=== PATIENT | male | born 1960 | race Caucasian/White ===

== ENCOUNTER → 2018-11-12 | Outpatient (CLI) | payer BC, SELFPAY ==
--- NOTE | 2018-11-12 09:37 | RAD_ITS ---
STUDY: X-RAY - LEFT HUMERUS REASON FOR EXAM: Male, 58 years old. Follow-up fracture. TECHNIQUE: 2 view(s) of the humerus. COMPARISON: None. FINDINGS: Although this exam is follow-up, no prior exams provided for comparison. Comminuted nondisplaced fractures are seen of the greater tuberosity and through the surgical neck of the humerus. Fracture lines are clearly evident. No specific evidence for healing. No dislocation. There is no demonstrated soft tissue abnormality. RAD/Humerus min 2 Views IMPRESSION: Fracture lines seen through the humeral head and greater tuberosity with no displacements or definite healing. Electronically Signed: Tereso Church MD at 17:19 EDT , Service support ,
== END | disposition home or self-care (01) ==
LOC: HPRAD 09:36
PROVIDERS: Family Provider Internal Medicine; PCP Internal Medicine; Referring Provider Orthopaedic Surgery; Visit Provider Orthopaedic Surgery
DX: S42.309A Unspecified fracture of shaft of humerus, unspecified arm, initial encounter for closed fracture (principal)
CPT/HCPCS: 73060

== ENCOUNTER → 2018-11-19 | Outpatient (CLI) | payer BC, SELFPAY ==
[2018-11-12 10:07] VITALS: BMI 30.2
[2018-11-19 10:24] LABS: Vitamin D,25 Hydroxy 18.2 ng/mL (29.95-100.01)
[2018-11-19 10:41] LABS: Anion Gap 4 (5-15); BUN 21 mg/dL (7-18); BUN/Creat Ratio 17.6 RATIO (10-20); Calcium,Total 9.1 mg/dL (8.5-10.1); Chloride 107 mmol/L (98-107); Cholesterol 191 mg/dL (200); Creatinine, Serum 1.19 mg/dL (0.70-1.30); EST Glomerular Filtration Rate 66 mL/min (>60); Est Glom Filt Rate - Afr Amer 80 mL/min (>60); Glucose 90 mg/dL (74-106); High Density Lipoprotein 53 mg/dL; Potassium 4.5 mmol/L (3.5-5.1); Sodium Level 139 mmol/L (136-145); Thyroid Stim Hormone (TSH) 0.91 uIU/mL (0.358-3.74); Triglycerides 127 mg/dL; Very Low Density Lipoprotein 25 mg/dL (5-40)
[2018-11-19 15:34] LABS: PSA,Total- Diagnostic 4.28 ng/mL (0.0-4.0)
== END | disposition home or self-care (01) ==
LOC: MFPLAB 08:40
PROVIDERS: Family Provider Family Medicine; PCP Family Medicine; Referring Provider Family Medicine; Visit Provider Family Medicine
DX: Z00.00 Encounter for general adult medical examination without abnormal findings (principal); R97.20 Elevated prostate specific antigen [PSA]
CPT/HCPCS: 36415; 80048; 80061; 82306; 84153; 84403; 84443; G0103

== ENCOUNTER → 2018-12-03 | Outpatient (CLI) | payer BC, SELFPAY ==
[2018-12-03 08:01] VITALS: BMI 30.2
--- NOTE | 2018-12-03 08:42 | RAD_ITS ---
STUDY: X-RAY - LEFT SHOULDER REASON FOR EXAM: Male, 58 years old. 3 view TECHNIQUE: 3 view(s) of the shoulder. COMPARISON: Previous left humerus x-rays obtained on 11/12/2018 FINDINGS: Normal glenohumeral articulation. Normal acromioclavicular joint. Normal acromion. There is a healing nondisplaced fracture involving the greater tuberosity. Callus deposition is noted surrounding the inferior fracture margin. The soft tissue structures are unremarkable. Normal visualized pulmonary apex. RAD/Shoulder min 2 Views IMPRESSION: A healing nondisplaced fracture is noted involving the greater tuberosity. Electronically Signed: Adan Carranza, at 9:41 EDT Tel , Service support ,
== END | disposition home or self-care (01) ==
LOC: HPRAD 08:42
PROVIDERS: Family Provider Family Medicine; PCP Family Medicine; Referring Provider Orthopaedic Surgery; Visit Provider Orthopaedic Surgery
DX: S42.293A Other displaced fracture of upper end of unspecified humerus, initial encounter for closed fracture (principal)
CPT/HCPCS: 73030

== ENCOUNTER → 2018-12-31 | Outpatient (CLI) | payer BC, SELFPAY ==
[2018-12-03 08:01] VITALS: BMI 30.2
--- NOTE | 2018-12-31 10:48 | RAD_ITS ---
STUDY: X-RAY - LEFT SHOULDER REASON FOR EXAM: Male, 58 years old. Injury. Pain. TECHNIQUE: 4 view(s) of the shoulder. COMPARISON: December 03, 2018 FINDINGS: There is mild degenerative arthrosis of the glenohumeral articulation. There is degenerative arthrosis of the acromioclavicular joint without inferior osseous spur formation. Normal acromion. There is stable humeral head fracture at the greater tuberosity. There is partial healing. The soft tissue structures are unremarkable. Normal visualized pulmonary apex. RAD/Shoulder min 2 Views IMPRESSION: Healing proximal humerus fracture. Electronically Signed: Jonas Julio MD at 22:32 EST , Service support ,
== END | disposition home or self-care (01) ==
LOC: HPRAD 10:47
PROVIDERS: Family Provider Family Medicine; PCP Family Medicine; Referring Provider Orthopaedic Surgery; Visit Provider Orthopaedic Surgery
DX: S42.293A Other displaced fracture of upper end of unspecified humerus, initial encounter for closed fracture (principal)
CPT/HCPCS: 73030

== ENCOUNTER 2019-01-08 10:30 | Outpatient (RCR) | payer BC, SELFPAY ==
[2018-11-12 10:07] VITALS: BMI 30.2
--- NOTE | 2018-11-21 12:58 | HP.PTEVAL_ITS ---
Patient's Visit Information TIMOTHY RAMOS is a 58 year old M referred to Physical Therapy by Angel Perez DO with a diagnosis of L Humerus Fracture. Date of Evaluation: 11/21/18 Physical Therapist: Val Mattson DPT - Visit Plan Frequency: 2x /Week Duration: 4 Weeks Plan: Start PROM 11/19/18, gently progress to AAROM. Start AROM at 12/06/18 per MD. - Subjective Findings: Tripped & landed on cement floor. Fractured in 2 places, x-rays in chart - 11/12/18. DUll pain in L shoulder. Lizandro N/T. Worst: 8-11/04 Aggravtes: moving, getting bumped. Pain Free Relieving Factors: pain meds, ice. Disrupts sleep at times. Sleeps in bed w/ wedge. Wears sling most of the time, not typically around the house or during sleep, but is extra careful at these times. L handed dominant. 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 No other injuries in the fall. Prior to injury yard & freq. yard work. No curent exercise program or other recreational work. Lizandro radiating pain up into neck or down the arm. Follow-up w/ 12/03/18. PMH/Meds: no sig. concerns. - Objective Posture: RS, FH, sling on L shoudler. ROM: Cervis WFL, Elbow WFL, L Shoulder Abd. 130 degrees, Flex. 110 degrees, Ext. Rot. 60 degrees. Strength: Not tested d/t fracture - Goals Goal 1:: Pt. will be I w/ HEP & progression Goal Time Frame: 4-6 Weeks Goal 2:: Pt. will demo 160 degrees of shoulder flexion Goal Time Frame: 4-6 Weeks Goal 3:: Pt. will report 0/10 pain w/ ADL's for 1 week. Goal Time Frame: 4-6 Weeks - Rehabilitation Potential Physical Therapy Diagnosis: Presents w/ L humerus fracture, decrease ROM/ Strength, and pain which leads to impaired performance of ADLs. Rehabilitation Potential: Good - Anticipated Interventions Patient/Client Instruction: Educate patient on: Condition For the Purpose of:: To decrease pain Therapeutic Exercise to Include: Strength training, Endurance training, Body mechanics, Postural training, Passive ROM, Active ROM, Scapular Strength/Stabilization For the Purpose of:: To improve muscle performance and motor function Manual Therapy Techniques to Include: Passive ROM For the Purpose of:: To improve muscle performance and motor function Cryotherapy (ice pack, ice massage): Yes Thermo therapy (hot pack): Yes Ultrasound (thermal/non thermal): Yes For the Purpose of:: To decrease pain Thank you for the opportunity to evaluate your patient. For Medicare and Medicare HMO plans, please review the plan of care and approve it. It will need to be FAXED BACK to us at [phone] for Medicare purposes. For Medicare only, by signing this I certify the plan of care. Please let me know if there are questions or concerns regarding this plan of care. Physician Signature: Date:
--- NOTE | 2018-12-19 08:45 | HP.PTREVAL_ITS ---
Angel Perez, DO, It has been my pleasure to treat TIMOTHY RAMOS over the last 9 visits for L Humerus Fracture. Please see the progress note below for an update on the physical therapy plan of care! Subjective: Patient reports the shoulder is doing good. It doesn't really hurt unless he pushes off of it. Sleeping on it is still a problem. The mobility is good- feels he is getting his strength back as well. Feels that he is 70% back to normal- is not back to digging and more physical work. Back to driving and no sling. Is back to work. Has a 2# lifting restriction. Feels that he is ready to be d/c and return to his normal activities. Goes back to Nov . Objective/Function: posture: good throughout. Gait: no deviation noted- good arm swing and trunk rotation. palpation: not tender. rom: wfl in all planes of the shoulder. Strength: scap: fair, Shoulder: 4/5 throughout, Elbow: +/5 Plan Plan: Hold 4 weeks perform HEP- follow up then Goals Goal 1:: Pt. will be I w/ HEP & progression Goal Time Frame: 4-6 Weeks Goal Progress: Goal Met Goal 2:: Pt. will demo 160 degrees of shoulder flexion Goal Time Frame: 4-6 Weeks Goal Progress: Goal Met Goal 3:: Pt. will report 0/10 pain w/ ADL's for 1 week. Goal Time Frame: 4-6 Weeks Goal Progress: Goal Met Anticipated Interventions Patient/Client Instruction: Educate patient on: Condition For the Purpose of:: To decrease pain Therapeutic Exercise to Include: Strength training, Endurance training, Body mechanics, Postural training, Passive ROM, Active ROM, Scapular Strength/Stabili zation For the Purpose of:: To improve muscle performance and motor function Manual Therapy Techniques to Include: Passive ROM For the Purpose of:: To improve muscle performance and motor function Cryotherapy (ice pack, ice massage): Yes Thermo therapy (hot pack): Yes Ultrasound (thermal/non thermal): Yes For the Purpose of:: To decrease pain Please do not hesitate to contact me at [phone] by phone or if you have questions or concerns regarding this new plan of care! Sincerely, Val Mattson DPT
--- NOTE | 2019-02-10 11:51 | HP.PTDCSUM ---
HP - PT D/C Summary It has been my pleasure to treat TIMOTHY RAMOS under orders from Angel Perez DO, for the diagnosis of L Humerus Fracture for a total of 10 visit(s). Discharge Date: Please see the following information for a summary of their discharge status. - Subjective Subjective: Here for a home exercise program for strength - Pain Left Shoulder Pain Intensity (Out of 10): 0 - Overall Improvement % Improvement: 70 - Objective Objective/Function: Patient returns to PT today due to MD wanting him to have a more extensive strength program. Edcuated and walked pt through exercises listed in TA- will follow up in 4 weeks for progression or d/c - Goals Goal 1:: Pt. will be I w/ HEP & progression Goal Progress: Goal Met Goal 2:: Pt. will demo 160 degrees of shoulder flexion Goal Progress: Goal Met Goal 3:: Pt. will report 0/10 pain w/ ADL's for 1 week. Goal Progress: Goal Met - Plan Plan: Hold 4 weeks perform HEP- follow up then - D/C Information If there are questions or concerns regarding this patient's physical therapy, please feel free to call me at [phone]. Thank you for the referral of this patient. Sincerely, JUNIOR PenningtonT
== END 2019-01-08 19:00 | disposition home or self-care (01) ==
LOC: PT 10:30
PROVIDERS: Family Provider Family Medicine; PCP Family Medicine; Referring Provider Orthopaedic Surgery; Visit Provider Orthopaedic Surgery
DX: S42.252D Displaced fracture of greater tuberosity of left humerus, subsequent encounter for fracture with routine healing (principal); S42.212D Unspecified displaced fracture of surgical neck of left humerus, subsequent encounter for fracture with routine healing
CPT/HCPCS: 97110; 97140; 97161; 97164; 97530

== ENCOUNTER → 2019-05-01 13:42 | Outpatient (CLI) | payer BC, SELFPAY ==
[2018-12-31 11:31] VITALS: BMI 30.2
[2019-05-01 15:43] LABS: PSA,Total - Annual Screen 4.25 ng/mL (0.00-4.00)
== END ==
PROVIDERS: PCP Family Medicine; Referring Provider Family Medicine; Visit Provider Urology
DX: R97.20 Elevated prostate specific antigen [PSA] (principal)
CPT/HCPCS: 36415; 84153; G0103

== ENCOUNTER → 2019-05-22 13:10 | Outpatient (CLI) | payer BC, SELFPAY ==
[2018-12-31 11:31] VITALS: BMI 30.2
[2019-05-22 13:35] LABS: CREATININE FINGERSTICK 1.1 mg/dL (0.70-1.30); EGFR FINGERSTICK > 60.0000 mL/min (>60)
--- NOTE | 2019-05-22 13:45 | MRI_ITS ---
STUDY: MR PELVIS WITH AND WITHOUT CONTRAST (PROSTATE) REASON FOR EXAM: Male, 58 years old. Elevated PSA with family history of prostate cancer TECHNIQUE: Standardized multiparametric prostate MRI with T1, T2, DWI/ADC sequences were obtained in 3 orthogonal planes, and dynamic contrast enhancement sequences. 21 ml of dotarem contrast material was administered intravenously for the contrast portion of the examination. COMPARISON: None. FINDINGS: The prostate volume measures 24 mm3. The contours of the prostate gland are smooth. There is not mass effect on the bladder base. The transition zone is homogenous. PI-RADS DWI score 1 - No abnormality (normal) on ADC or high b-value DWI. PI-RADS T2W score 1 - Normal appearing TZ or a round, completely encapsulated nodule (typical nodule).. Contrast enhancement no early or contemporaneous enhancement; or diffuse multifocal enhancement NOT corresponding to a focal finding on T2W and/or DWI or focal nhancement responding to a lesion demonstrating features of BPH onT2WI (including features of extruded BPH in the PZ). The peripheral zone is homogenous except for geographic/diffuse area of increased T2 signal intensity of the anterior mid apical peripheral zone (without diffusion or contrast enhancement abnormality) likely representing localized prostatitis. PI-RADS DWI score 1 - No abnormality (normal) on ADC or high b-value DWI. PI-RADS T2W score 1 - Uniformaly hyperintense (normal). Contrast enhancement (+) Focal, earlier or contemporaneous with enhancement of adjacent normal prostatic tissues, and corresponding to a suspicious finding on T2WI and/or DWI. The seminal vesicles demonstrate normal margins and T2 signal pattern. No mass lesion or invasion depicted. The rectoprostatic angles are normal. Urinary bladder is normal without wall thickening. The vascular structures of the are normal. The visualized hollow viscus structures are normal. No bone marrow edema or mass lesion depicted. MRI/Pelvis W/WO Contrast IMPRESSION: 1. PIRADS v2.1 2019 -- 1 - Very low (clinically significant cancer is high unlikely). 2. Localized anterior mid and apical peripheral zone T2 hyperintensity likely represents localized chronic prostatitis/inflammation Electronically Signed: Tayo Tran MD ([place]) at 15:58 EDT , Service support ,
== END ==
PROVIDERS: PCP Family Medicine; Referring Provider Urology; Visit Provider Urology
DX: R97.20 Elevated prostate specific antigen [PSA] (principal)
CPT/HCPCS: 72197; A9575

== ENCOUNTER → 2020-01-12 16:41 | Outpatient (CLI) | payer BC, SELFPAY ==
[2018-12-31 11:31] VITALS: BMI 30.2
== END ==
PROVIDERS: PCP Family Medicine; Referring Provider Family Medicine; Visit Provider Family Medicine
DX: Z71.89 Other specified counseling (principal)
CPT/HCPCS: 87635; U0003

== ENCOUNTER → 2020-07-18 13:37 | Outpatient (CLI) | payer BC, SELFPAY ==
[2018-12-31 11:31] VITALS: BMI 30.2
[2020-07-18 15:37] LABS: PSA,Total- Diagnostic 5.55 ng/mL (0.0-4.0)
== END ==
PROVIDERS: PCP Family Medicine; Referring Provider Urology; Visit Provider Urology
DX: R97.20 Elevated prostate specific antigen [PSA] (principal)
CPT/HCPCS: 36415; 84153

== ENCOUNTER → 2020-08-11 06:06 | Outpatient (CLI) | payer BC, SELFPAY ==
[2018-12-31 11:31] VITALS: BMI 30.2
--- NOTE | 2020-08-10 | LES_PTH ---
PATIENT: TIMOTHY RAMOS LOC: [facility] U#:[id number] AGE/SX: 64/M ROOM: RE08/11/[address]: Dr. Luke Guevara MD : 1960 BED: DIS: SPEC #: [id number] RECD: 08/10/20 17:48 STATUS: MAGGIE ANTHONY #: [id number] STEVEN: 08/10/20 00:[address]: Luke Guevara DEPT: SURGICAL PATHOLOGY RECD BY: Philippe Bonilla Tissues: Skin of chest Procedures: Surgery Specimen Level IV HEADER OPERATION: Skin biopsy PRE-OP DIAGNOSIS: Right chest skin lesion TISSUE SUBMITTED: Right chest skin lesion MICROSCOPIC DIAGNOSIS Skin lesion of right chest, biopsy: Seborrheic keratosis, hyperkeratotic type, inflamed. AM:ileana 08/12/2020 MICROSCOPIC DESCRIPTION Slides are reviewed. GROSS DESCRIPTION Received in fixative is one container labeled with the patient's name and designated right chest lesion. The specimen consists of a piece of michelle-brown skin measuring 0.7 x 0.5 x 0.4 cm. The specimen is inked, bisected and submitted entirely in one cassette. / SJ:rg 08/11/20 TC:5 CPT: 19219
[2020-08-11 11:15] LABS: Anion Gap 6 (5-15); BUN 21 mg/dL (7-18); BUN/Creat Ratio 18.3 RATIO (10-20); Calcium,Total 8.7 mg/dL (8.5-10.1); Chloride 107 mmol/L (98-107); Cholesterol 202 mg/dL (200); Creatinine, Serum 1.15 mg/dL (0.70-1.30); EST Glomerular Filtration Rate 69 mL/min (>60); Est Glom Filt Rate - Afr Amer 83 mL/min (>60); Glucose 88 mg/dL (74-106); High Density Lipoprotein 70 mg/dL; Potassium 4.5 mmol/L (3.5-5.1); Sodium Level 140 mmol/L (136-145); Triglycerides 105 mg/dL; Very Low Density Lipoprotein 21 mg/dL (5-40)
[2020-08-11 11:35] LABS: Vitamin D,25 Hydroxy 21.6 ng/mL
== END ==
PROVIDERS: Visit Provider Family Medicine
DX: Z00.00 Encounter for general adult medical examination without abnormal findings (principal); L98.9 Disorder of the skin and subcutaneous tissue, unspecified
CPT/HCPCS: 36415; 80048; 80061; 82306; 88305

== ENCOUNTER → 2021-10-25 | Outpatient (CLI) | payer BC, SELFPAY ==
[2021-10-25 10:38] LABS: Vitamin D,25 Hydroxy 19.3 ng/mL
[2021-10-25 10:47] LABS: Anion Gap 5 (5-15); BUN 19 mg/dL (7-18); BUN/Creat Ratio 14.4 RATIO (10-20); Calcium,Total 9.2 mg/dL (8.5-10.1); Chloride 109 mmol/L (98-107); Cholesterol 192 mg/dL (200); Creatinine, Serum 1.32 mg/dL (0.70-1.30); EST Glomerular Filtration Rate 58 mL/min (>60); Est Glom Filt Rate - Afr Amer 70 mL/min (>60); Glucose 106 mg/dL (74-106); High Density Lipoprotein 57 mg/dL; PSA,Total - Annual Screen 8.73 ng/mL (0.00-4.00); Potassium 4.2 mmol/L (3.5-5.1); Sodium Level 140 mmol/L (136-145); Triglycerides 95 mg/dL; Very Low Density Lipoprotein 19 mg/dL (5-40)
== END | disposition home or self-care (01) ==
LOC: MFPLAB 09:09
PROVIDERS: Visit Provider Family Medicine
DX: Z00.00 Encounter for general adult medical examination without abnormal findings (principal); E55.9 Vitamin D deficiency, unspecified; R53.83 Other fatigue; R97.20 Elevated prostate specific antigen [PSA]; Z13.220 Encounter for screening for lipoid disorders
CPT/HCPCS: 36415; 80048; 80061; 82306; 84153; 84403; 84443; G0103

== ENCOUNTER → 2021-12-05 | Outpatient (CLI) | payer BC, SELFPAY ==
--- NOTE | 2021-12-05 08:00 | PROSBIL_PTH ---
PATIENT: TIMOTHY RAMOS LOC: [facility] U#:[id number] AGE/SX: 61/M ROOM: RE12/05/[address]: Dr. Darius Villatoro MD : 1960 BED: DIS: 12/05/2021 SPEC #: [id number] RECD: 12/05/21 18:22 STATUS: MAGGIE ANTHONY #: [id number] STEVEN: 12/05/21 08:[address]: Darius Villatoro DEPT: SURGICAL PATHOLOGY RECD BY: Po Beard Tissues: A - PROSTATE RIGHT B - PROSTATE RIGHT C - PROSTATE RIGHT D - PROSTATE LEFT E - PROSTATE LEFT F - PROSTATE LEFT Procedures: PROSTATE BX HEADER OPERATION: Prostate biopsy PRE-OP DIAGNOSIS: Elevated PSA R97.20 TISSUE SUBMITTED: A - Right apex, B - Right mid, C - Right base, D - Left apex, E - Left mid, F - Left base MICROSCOPIC DIAGNOSIS A. Right prostate, apex, core biopsy: Prostatic tissue, negative for malignancy. B. Right prostate, mid, core biopsy: Prostatic tissue, negative for malignancy. C. Right prostate, base, core biopsy: Prostatic tissue, negative for malignancy. Focal mild chronic inflammation. D. Left prostate, apex, core biopsy: Prostatic tissue, negative for malignancy. E. Left prostate, mid, core biopsy: Prostatic tissue, negative for malignancy. F. Left prostate, base, core biopsy: Prostatic tissue, negative for malignancy. SJ:ileana 12/07/2021 MICROSCOPIC DESCRIPTION Slides are reviewed. GROSS DESCRIPTION A - Received is one container designated prostate, right apex. The specimen consists of two elongated fragments of light michelle-white soft tissue measuring 1 and 1.5 cm in length and 0.1 cm in diameter. The specimen is totally submitted in one cassette. B - Received is one container designated prostate, right mid. The specimen consists of two elongated fragments of light michelle-white soft tissue each measuring 1.5 cm in length and 0.1 cm in diameter. The specimen is totally submitted in one cassette. C - Received is one container designated prostate, right base. The specimen consists of two elongated fragments of light michelle-white soft tissue each measuring 1 cm in length and 0.1 cm in diameter. The specimen is totally submitted in one cassette. D - Received is one container designated prostate, left apex. The specimen consists of two elongated fragments of light michelle-white soft tissue measuring 0.6 and 1.5 cm in length and 0.1 cm in diameter. The specimen is totally submitted in one cassette. E - Received is one container designated prostate, left mid. The specimen consists of two elongated fragments of light michelle-white soft tissue measuring 1 and 1.5 cm in length and 0.1 cm in diameter. The specimen is totally submitted in one cassette. F - Received is one container designated prostate, left base. The specimen consists of two elongated fragments of light michelle-white soft tissue each measuring 1.5 cm in length and 0.1 cm in diameter. The specimen is totally submitted in one cassette. / SJ:rg 12/06/2021 TC:3 CPT: 54438 x6
== END | disposition home or self-care (01) ==
LOC: LABSPEC 16:33
PROVIDERS: Visit Provider Urology
DX: R97.20 Elevated prostate specific antigen [PSA] (principal)
CPT/HCPCS: 88305; G0416

== ENCOUNTER → 2022-06-11 | Outpatient (CLI) | payer BC, SELFPAY ==
[2022-06-11 16:11] LABS: PSA,Total- Diagnostic 8.97 ng/mL (0.0-4.0)
== END | disposition home or self-care (01) ==
LOC: MFPLAB 14:10
PROVIDERS: Visit Provider Family Medicine
DX: R97.20 Elevated prostate specific antigen [PSA] (principal)
CPT/HCPCS: 36415; 84153

== ENCOUNTER → 2022-09-13 | Outpatient (CLI) | payer BC, SELFPAY ==
[2022-09-13 12:39] LABS: Absolute Lymphocyte Count 0.59 X10^3/uL (0.83-4.51); Basophil# 0.02 X10^3/uL; Basophil% 0.3 % (0-1); Eosinophil# 0.05 X10^3/uL; Eosinophils% 0.7 % (0-5); Hematocrit 50.6 % (40-54); Hemoglobin 16.7 g/dL (13.0-16.5); Lymphocyte # 0.59 X10^3/ul (0.83-4.51); Lymphocyte % 8.8 % (19-41); Mean Corpuscular Hgb 29.5 pg (27.0-32.0); Mean Corpuscular Volume 89.4 fL (80-94); Mean Platelet Vol. 9.8 fl (6.2-12.0); Monocyte# 0.94 X10^3/uL; Monocyte% 14.1 % (0-10); NRBC Flagged by Analyzer 0 % (0-5); Neutrophil # 5.04 X10^3/uL (2.7-7.7); Neutrophil % 75.7 % (47-70); POSITIVE DIFFERENTIAL YES; Platelet Count 143 K/mm3 (150-450); RBC Distribution Width CV 12.2 % (11.6-14.6); Red Blood Count 5.66 M/mm3 (4.6-6.2); White Blood Count 6.7 K/mm3 (4.4-11.0)
[2022-09-13 12:41] LABS: Differential Indicated SCAN CRITERIA MET
[2022-09-13 13:36] LABS: Anion Gap 6 (5-15); BUN 19 mg/dL (7-18); BUN/Creat Ratio 13.4 RATIO (10-20); Calcium,Total 9.1 mg/dL (8.5-10.1); Chloride 104 mmol/L (98-107); Creatinine, Serum 1.42 mg/dL (0.70-1.30); EST Glomerular Filtration Rate 53 mL/min (>60); Est Glom Filt Rate - Afr Amer 65 mL/min (>60); Glucose 148 mg/dL (74-106); Sodium Level 135 mmol/L (136-145)
[2022-09-14 11:09] LABS: Lyme Scn Total Ab w/Rflx Negative (Negative)
== END | disposition home or self-care (01) ==
LOC: MFPLAB 10:07
PROVIDERS: PCP Family Medicine; Visit Provider Family Medicine
DX: R21 Rash and other nonspecific skin eruption (principal); R53.83 Other fatigue
CPT/HCPCS: 36415; 80048; 85025; 86618

== ENCOUNTER → 2022-12-26 | Outpatient (CLI) | payer BC, SELFPAY ==
[2022-12-26 10:41] LABS: Absolute Lymphocyte Count 2.03 X10^3/uL (0.83-4.51); Absolute Neutrophil Count 4.1 X10^3/uL (2.0-7.7); Basophil# 0.02 X10^3/uL; Basophil% 0.3 % (0-1); Eosinophil# 0.24 X10^3/uL; Eosinophils% 3.4 % (0-5); Hematocrit 47.7 % (40-54); Hemoglobin 15.9 g/dL (13.0-16.5); Lymphocyte # 2.03 X10^3/ul (0.83-4.51); Lymphocyte % 28.8 % (19-41); Mean Corp Hgb Conc 33.3 g/dL (32-36); Mean Platelet Vol. 9.2 fl (6.2-12.0); Monocyte# 0.63 X10^3/uL; Monocyte% 8.9 % (0-10); NRBC Flagged by Analyzer 0 % (0-5); Neutrophil # 4.12 X10^3/uL (2.7-7.7); Neutrophil % 58.3 % (47-70); Platelet Count 225 K/mm3 (150-450); RBC Distribution Width CV 12.8 % (11.6-14.6); RBC Distribution Width SD 40.8 fl (35.1-43.9); Red Blood Count 5.48 M/mm3 (4.6-6.2); White Blood Count 7.1 K/mm3 (4.4-11.0)
[2022-12-26 11:18] LABS: PSA,Total- Diagnostic 8.47 ng/mL (0.0-4.0)
[2022-12-28 15:59] LABS: ALB/GLOB Ratio 1.3 RATIO (0.9-2.4); AST(SGOT) 18 U/L (15-37); Alanine Aminotransfer ALT/SGPT 36 U/L (16-61); Albumin, Serum 3.9 g/dL (3.2-5.0); Alkaline Phosphatase 76 U/L (45-117); Anion Gap 5 (5-15); BUN 17 mg/dL (7-18); BUN/Creat Ratio 14.2 RATIO (10-20); Calcium,Total 8.8 mg/dL (8.5-10.1); Chloride 109 mmol/L (98-107); Cholesterol 211 mg/dL (200); EST Glomerular Filtration Rate 65 mL/min (>60); Est Glom Filt Rate - Afr Amer 78 mL/min (>60); Globulin 3.1 g/dL (2.2-4.2); Glucose 99 mg/dL (74-106); High Density Lipoprotein 69 mg/dL; Sodium Level 140 mmol/L (136-145); Triglycerides 85 mg/dL; Very Low Density Lipoprotein 17 mg/dL (5-40)
== END | disposition home or self-care (01) ==
LOC: MFPLAB 09:04
PROVIDERS: PCP Family Medicine; Referring Provider Urology; Visit Provider Urology
DX: Z00.00 Encounter for general adult medical examination without abnormal findings (principal); R97.20 Elevated prostate specific antigen [PSA]
CPT/HCPCS: 36415; 80053; 80061; 84153; 85025

== ENCOUNTER → 2023-04-08 | Outpatient (CLI) | payer BC, SELFPAY ==
[2023-04-08 18:34] LABS: ALB/GLOB Ratio 1.3 RATIO (0.9-2.4); AST(SGOT) 11 U/L (15-37); Alanine Aminotransfer ALT/SGPT 31 U/L (16-61); Albumin, Serum 3.9 g/dL (3.2-5.0); Alkaline Phosphatase 93 U/L (45-117); Anion Gap 6 (5-15); BUN 24 mg/dL (7-18); Calcium,Total 8.9 mg/dL (8.5-10.1); Chloride 114 mmol/L (98-107); Creatinine, Serum 1.09 mg/dL (0.70-1.30); EST Glomerular Filtration Rate 72 mL/min (>60); Est Glom Filt Rate - Afr Amer 87 mL/min (>60); Glucose 113 mg/dL (74-106); Potassium 3.7 mmol/L (3.5-5.1); Protein, Total 6.9 g/dL (6.4-8.2); Sodium Level 144 mmol/L (136-145); Uric Acid 7.3 mg/dL (3.5-7.2)
--- OUTSIDE RECORDS SUMMARY | 2023-04-08 18:38 | XMS RPT_ITS | CCD ---
Author Name Unknown Address [address] [place] [address] Organization [facility] Results Test Name Value Interpretation Reference Range Facil ity Progress note 05-12-2021 Note Date & Type Note Facility 05-12-2021 Note HNO ID: [id number] Author: Alec Lloyd APRN.DISCIPLINARY HEARING OFFICER Service: ? Author Type: Nurse Practitioner Type: Progress Notes Filed: 05/12/2021 11:07 AM Note Text: Subjective HPI HPI Tin Vargas is a 60 year old male who presents today for CC of bump on left arm. This started 1 day ago. Has tried nothing for relief. Symptoms are worsened by nothing. Risk factors last week did repetitive job. Denies known injury, fever, joint pain. .Patient presents with: Pain (Elbow Pain): L arm possible bursitis x1 day PAST MEDICAL HISTORY Diagnosis Date - Benign neoplasm of colon colon polyp - Chronic rhinitis had prior allergy testing but no source found; conotrlled with Actifed - Diverticulosis of colon (without mention of hemorrhage) - Snoring PAST SURGICAL HISTORY Procedure Laterality Date - COLONOSCOPY FLX DX W/COLLJ SPEC WHEN PFRMD 02/07/2000 Colonoscopy - COLONOSCOPY FLX DX W/COLLJ SPEC WHEN PFRMD 05/09/2006 Colonoscopy - COLONOSCOPY FLX DX W/COLLJ SPEC WHEN PFRMD 04/14/2012 Colonoscopy - COLONOSCOPY FLX DX W/COLLJ SPEC WHEN PFRMD 05/27/2017 Colonoscopy - PAST SURGICAL HISTORY OF 2004 Cyst removed from neck - TONSILLECTOMY PRIMARY/SECONDARY ALLERGIES Patient has no known allergies. MEDICATIONS acetaminophen (TYLENOL) 325 mg tablet Take 650 mg by mouth every 6 hours as needed. IBUPROFEN ORAL Take by mouth as needed. pseudoephedrine-triprolidine (ACTIFED) 2.5-60 mg tab Takes 2 daily to control congestion and allergy symptoms methylPREDNISolone (MEDROL, NARAYAN,) 4 mg Dose-Pack Follow dosing instructions, take with food. meloxicam (MOBIC) 15 mg tablet Take 1 tablet by mouth once daily. for pain. Take with food. FAMILY HISTORY Problem Relation Age of Onset - Prostate Cancer Father - Diabetes Maternal Grandfather - other (ASCVD [Other]) Maternal Grandfather from [place] in late 70's - other (Cardiac [Other]) Father might need pacer - other (cardiac [Other]) Mother might need pacer - other (Skin cancer [Other]) Sister ?melanoma - Prostate Cancer Other Great Uncle PGF side - Prostate Cancer Other Great Uncle's son - Cancer Paternal Grandfather ?NHL (nonHodgkins Lymphome) Social History Tobacco Use - Smoking status: Former Smoker Years: 6.00 Types: Cigarettes Quit date: 03/04/2005 Years since quittin.2 - Smokeless tobacco: Never Used - Tobacco comment: Quit 1993 2-3 cig. daily Substance Use Topics - Alcohol use: Yes Comment: 3-4 beer or wine daily - Drug use: No Comment: h/o marjiuana (in college) x 4-5 years Quit ROS Objective Blood pressure 128/92, pulse 77, temperature 36.4 ?C (97.5 ?F), resp. rate 18, weight 108.9 kg (240 lb), SpO2 99 %. Physical Exam Constitutional: General: He is not in acute distress. Appearance: He is not toxic-appearing or diaphoretic. HENT: Head: Normocephalic and atraumatic. Cardiovascular: Pulses: Radial pulses are 2+ on the left side. Pulmonary: Effort: Pulmonary effort is normal. No accessory muscle usage or respiratory distress. Musculoskeletal: Left elbow: Swelling present. No deformity, effusion or lacerations. Normal range of motion. No tenderness. Arms: Neurological: Mental Status: He is alert and oriented to person, place, and time. ASSESSMENT/PLAN: 1. Olecranon bursitis of left elbow - ICD9: 726.33, ICD10: M70.22 Steroids ordered, compression and icing advised F/u in 7-10 days if no improvement with pcp or ortho. - METHYLPREDNISOLONE 4 MG TABLETS IN A DOSE PACK Agrees to plan Declines avs Alec Lloyd APRN.DISCIPLINARY HEARING OFFICER [facility] Summary Purpose Family History No Family History Records Found Advance Directives No Advanced Directives Records Found Additional Source Comments (unrecognized sect ion and content) No Status Records Found INFORMATION SOURCE (unrecogn ized section and content) FOR RECORDS PERTAINING TO PATIENTS WHO ARE OR HAVE BEEN ENROLLED IN A CHEMICAL DEPENDENCY/SUBSTANCEABUSE PROGRAM, SOME INFORMATION MAY BE OMITTED. This clinical summary was aggregated from multiple sources. Caution should be exercised in using it in the provision of clinical care. This summary normalizes information from multiple sources, and as a consequence, information in this document may materially change the coding, format and clinical context of patient data. In addition, data may be omitted in some cases. CLINICAL DECISIONS SHOULD BE BASED ON THE PRIMARY CLINICAL RECORDS. [facility] [employer] provides no warranty or guarantee of the accuracy or completeness of information in this document.
== END | disposition home or self-care (01) ==
LOC: MFPLAB 14:09
PROVIDERS: PCP Family Medicine; Visit Provider Family Medicine
DX: F10.10 Alcohol abuse, uncomplicated (principal); M10.9 Gout, unspecified
CPT/HCPCS: 36415; 80053; 84550

== ENCOUNTER 2023-04-15 09:49 | Outpatient (RCR) | payer BC, SELFPAY | END 2023-04-15 19:00 | disposition home or self-care (01) | LOC: PT 09:49 | PROVIDERS: PCP Family Medicine; Referring Provider Student in an Organized Health Care Education/Training Program; Visit Provider Student in an Organized Health Care Education/Training Program | DX: M76.61 Achilles tendinitis, right leg (principal) ==

== ENCOUNTER → 2023-06-25 | Outpatient (CLI) | payer BC, SELFPAY ==
[2023-06-25 18:15] LABS: PSA,Total- Diagnostic 8.13 ng/mL (0.0-4.0)
== END | disposition home or self-care (01) ==
LOC: MFPLAB 15:47
PROVIDERS: PCP Family Medicine; Visit Provider Family Medicine
DX: R97.20 Elevated prostate specific antigen [PSA] (principal)
CPT/HCPCS: 36415; 84153

== ENCOUNTER 2023-09-11 00:05 | Emergency (ER) | payer BC, SELFPAY ==
[2023-09-11] VITALS (7 sets, daily range): BP systolic 152–175; BP diastolic 78–95; PULSE 63–92; RESP 18; TEMP 36.6–36.9; O2SAT 94–97; BMI 29.6
--- NOTE | 2023-09-11 00:26 | RAD_ITS ---
STUDY: X-RAY - RIGHT KNEE REASON FOR EXAM: Male, 63 years old patient wit right-sided knee pain. TECHNIQUE: 3 view(s) of the knee. COMPARISON: None. FINDINGS: Normal visualized distal femur. Normal visualized proximal tibia and fibula. There is arthrosis of the proximal tibiofibular articulation. There is no demonstrated fracture. Normal medial femorotibial compartment. Normal lateral femorotibial compartment. There is mild degenerative arthrosis of the patellofemoral articulation. There is a moderate volume joint effusion. There are atherosclerotic calcifications. RAD/Knee 3 Views IMPRESSION: Suprapatellar effusion and mild degenerative arthropathy. Electronically Signed: Stacey Zamudio MD at 2:06 EDT ,
[2023-09-11 00:53] LABS: Absolute Lymphocyte Count 1.32 X10^3/uL (0.83-4.51); Absolute Neutrophil Count 7.4 X10^3/uL (2.0-7.7); Basophil# 0.02 X10^3/uL; Basophil% 0.2 % (0-1); Eosinophil# 0.15 X10^3/uL; Eosinophils% 1.5 % (0-5); Hematocrit 44.6 % (40-54); Hemoglobin 14.9 g/dL (13.0-16.5); Lymphocyte # 1.32 X10^3/ul (0.83-4.51); Lymphocyte % 13.2 % (19-41); Mean Corp Hgb Conc 33.4 g/dL (32-36); Mean Corpuscular Hgb 29.3 pg (27.0-32.0); Mean Corpuscular Volume 87.6 fL (80-94); Mean Platelet Vol. 9.3 fl (6.2-12.0); Monocyte# 1.12 X10^3/uL; Monocyte% 11.2 % (0-10); NRBC Flagged by Analyzer 0 % (0-5); Neutrophil # 7.38 X10^3/uL (2.7-7.7); Neutrophil % 73.5 % (47-70); Platelet Count 199 K/mm3 (150-450); RBC Distribution Width CV 12.4 % (11.6-14.6); RBC Distribution Width SD 39.7 fl (35.1-43.9); Red Blood Count 5.09 M/mm3 (4.6-6.2)
[2023-09-11 01:03] LABS: Anion Gap 7 (5-15); BUN 16 mg/dL (7-18); BUN/Creat Ratio 13.8 RATIO (10-20); Calcium,Total 8.6 mg/dL (8.5-10.1); Chloride 107 mmol/L (98-107); Creatinine, Serum 1.16 mg/dL (0.70-1.30); EST Glomerular Filtration Rate 67 mL/min (>60); Est Glom Filt Rate - Afr Amer 81 mL/min (>60); Estimated Creatinine Clearance 81.93 ml/min; Glucose 108 mg/dL (74-106); Potassium 3.9 mmol/L (3.5-5.1); Sodium Level 140 mmol/L (136-145)
[2023-09-11 01:04] LABS: Erythrocyte Sedimentation Rate < 1 mm/hr (0-20)
[2023-09-11 01:13] LABS: Lactic Acid 1.6 mmol/L (0.4-1.9)
[2023-09-11 02:04] LABS: Pathologist Comment/Body Fluid May follow
--- NOTE | 2023-09-11 02:16 | EX.ED.DYSGE1 ---
HPI History of Present Illness Chief Complaint: Fever Informant: patient Narrative Narrative: Patient is a 63-year-old male with no significant past medical history. He states he noted some right knee pain that felt more like he tweaked the knee on Saturday. Since that time he has been having increasing pain and swelling. This evening he awoke with subjective fevers and chills and felt worsening pain of his right knee. With concern there may be an infectious process he presents for evaluation. He denies any recent travel surgery or history of DVT/PE. [facility] Medical History Elevated PSA Home Medications ?Medication ?Instructions ?Recorded ?Last Taken ?Type Actifed 02/05/14 Unknown History prednisone 20 mg tablet 40 mg (2 x 20 mg) PO DAILY 5 days 09/11/23 Unknown Rx #10 tabs Allergy/AdvReac Type Severity Reaction Status Date / Time No Known Allergies Allergy Verified 02/05/14 01:28 Surgical History (Updated 09/11/23 @ 00:15 by Jennie Christianson) H/O lymph node biopsy Social History (Updated 12/03/18 @ 11:[address] Angel Perez, DO) Smoking Status: Former smoker ROS ROS ED Constitutional Constitutional ED: Reports chills, fever(s) and subjective ENT ENT ED: Denies sore throat Cardiovascular Cardiovascular: Denies chest pain Respiratory/Chest Respiratory/Chest: Denies cough or dyspnea Gastrointestinal Gastrointestinal: Denies abdominal pain, diarrhea, nausea or vomiting Genitourinary Genitourinary ED: Denies dysuria Musculoskeletal Musculoskeletal: Reports other Details: Positive right knee pain and swelling Integumentary Denies rash Neurologic Neurologic: Denies headache(s), paresthesias or weakness Hematologic/Lymphatic Hematologic/Lymphatic: Denies easy bleeding or easy bruising EXAM Physical Exam Const Vital Signs: 09/11/23 00:06 09/11/23 00:11 09/11/23 00:13 Temperature 98.3 F 98.3 F Temperature Source Oral Oral Pulse Rate 63 86 Respiratory Rate 18 18 Respiratory Effort Normal Respiratory Pattern Normal Blood Pressure 173/95 H 173/95 H Blood Pressure Mean 121 121 Pulse Ox 97 97 Oxygen Delivery Method Room Air Room Air 09/11/23 01:11 09/11/23 02:11 09/11/23 03:00 Temperature 98 F 97.8 F 98 F Temperature Source Temporal Temporal Temporal Pulse Rate 88 92 86 Respiratory Rate 18 18 18 Respiratory Effort Respiratory Pattern Blood Pressure 175/88 H 163/95 H 159/90 H Blood Pressure Mean 117 117 113 Pulse Ox 96 95 96 Oxygen Delivery Method 09/11/23 04:00 09/11/23 04:22 Temperature 97.8 F 98.4 F Temperature Source Temporal Pulse Rate 91 88 Respiratory Rate 18 18 Respiratory Effort Respiratory Pattern Blood Pressure 159/86 H 152/78 H Blood Pressure Mean 110 102 Pulse Ox 95 94 Oxygen Delivery Method Positive well nourished and well developed General Appearance ED: well developed HEENT HEENT Narrative: Normocephalic atraumatic Eyes PERRL and EOMs intact bilaterally General Eye ED: Negative for pale conjunctiva or scleral icterus Neck supple Neck Narrative: No nuchal rigidity or meningeal signs Resp normal respiratory effort and clear to auscultation bilaterally Resp Narrative: No nasal flaring retractions tachypnea or accessory muscle use Cardio regular rate and regular rhythm Rate: other Other Details: Heart is regular rate and rhythm without murmurs rubs or gallops Radial and carotid pulses are equal and symmetric GI normal to inspection, nondistended, normoactive bowel sounds, non-tender, non-distended and no masses Auscultation: normoactive bowel sounds Palpation: soft Extremity Extremity Narrative: Right lower extremity is neurovascularly intact. Patient has asymmetric swelling to the anterior aspect of the right knee compared to left. There is a small joint effusion present. There is faint erythema and warmth of the right anterior knee compared to left. Active range of motion is present but decreased of the right knee compared to left. No crepitance palpated. Patellar tendon is intact and knee ligaments are stable Negative Homans' sign bilaterally Compartments are soft and compressible going against compartment syndrome Neuro oriented x3, CN's II-XII intact bilaterally and no sensory deficits noted Sensorium / Orientation: alert Psych mental status grossly normal Skin Skin Narrative: Mild soft tissue swelling with joint effusion and faint erythema to the anterior aspect of the right knee without obvious abscess formation active drainage or lymphangitic streaking Patient does have a healing wound along the posterior aspect of the right distal thigh without retained foreign body or signs of secondary infection MDM MDM MDM Narrative Medical decision making narrative: Patient arrived to the ER hypertensive but otherwise with stable vitals. He reported pain and swelling to his right knee that came on slowly on Saturday and has increased over multiple days. He denies any trauma or excessive activity prior to the pain beginning. He states this evening he had subjective fevers and chills and was concern for infection so presented for evaluation. On exam he is able to bear weight and flex the knee so concern for septic joint is present but lower on the differential. I do have concern that this is an inflammatory bursitis but there is also concern for potential infective bursitis versus inflammatory arthritis versus bony injury such as contusion or fracture. Therefore blood work was obtained as well as a x-ray. Labs are only positive for mildly elevated CRP with normal white count and no lactic acidosis or elevation to the CRP. X-ray showed an effusion without any obvious changes to suggest osteomyelitis or fracture. Based on the mildly elevated CRP slowly increasing pain and now joint effusion decision was made to aspirate the joint as documented below. The patient's Gram stain is negative for any type of organisms. I feel that a negative Gram stain coupled with the fact he does not have a fever in the ER as well as the fact there is no leukocytosis or lactic acidosis or elevation to his ESR but only mild elevation to his CRP would indicate that this is an inflammatory bursitis/arthritis and not infectious. Lab reports that he has monosodium urate crystals in the joint aspirate which is most consistent with gout. This correlates with his mild elevation of CRP but no signs of infectious process. Therefore he will be placed on a 5-day course of prednisone to reduce inflammation and gouty crystals but is otherwise safe for discharge. Patient had his right knee flexed to approximately 45 degrees. The knee was prepped with chlorhexidine in sterile fashion. The area was anesthetized using 6 mL of 2% lidocaine with epinephrine and local fashion. A 20-gauge needle was then used to infiltrate the right knee joint space. Approximately 30 mL of straw-colored synovial fluid was removed. Following this a bandage was placed over top the injection site and the knee was wrapped in Koko wrap. Patient tolerated procedure well without complication. History & Record Review Discussion w/independent historian: Patient Lab Data Attestation: I reviewed the patient's lab results. Labs: Laboratory Results - last 24 hr 09/11/23 09/11/23 00:36 01:59 WBC 10.0 RBC 5.09 Hgb 14.9 Hct 44.6 MCV 87.6 MCH 29.3 MCHC 33.4 RDW Std Deviation 39.7 RDW Coeff of Stepan 12.4 Plt Count 199 MPV 9.3 Immature Gran % (Auto) 0.400 Neut % (Auto) 73.5 H Lymph % (Auto) 13.2 L [place] % (Auto) 11.2 H Eos % (Auto) 1.5 Baso % (Auto) 0.2 Absolute Neuts (auto) 7.4 Absolute Lymphs (auto) 1.32 Nucleated RBC % 0 ESR < 1 Sodium 140 Potassium 3.9 Chloride 107 Carbon Dioxide 26.0 Anion Gap 7 BUN 16 Creatinine 1.16 Estim Creat Clear Calc 81.93 Est GFR (MDRD) Af Amer 81 Est GFR (MDRD) Non-Af 67 BUN/Creatinine Ratio 13.8 Glucose 108 H Lactic Acid 1.6 Calcium 8.6 C-React Prot Ext Range 16.00 H Fluid Source OTHER Fluid Color YELLOW Fluid Appearance CLOUDY Fluid Crystal Source SYNOVIAL Radiography Diagnostic Testing: Clinical Impression(s) from Imaging Studies Knee X-Ray 09/11/23 00:26 IMPRESSION: Suprapatellar effusion and mild degenerative arthropathy. Electronically Signed: Stacey Zamudio MD at 2:06 EDT Reading Location ID and State: [facility] / [place] , Service support , X-ray of the right knee as interpreted by the emergency medicine physician shows mild arthritic changes without acute fracture dislocation or retained foreign body. There is a moderate joint effusion noted Discharge Plan Triage Chief Complaint: Fever Other Complaint: Lower Extremity Injury ED Provider: Fran Mars Dx/Rx/DC Orders Clinical Impression: Effusion of right knee joint, Gouty arthritis of right knee, Hypertension Instructions: ED Gout, ED Knee Effusion Prescriptions: New prednisone 20 mg tablet 40 mg PO DAILY 5 Days Qty: 10 0RF No Action Actifed Primary Care Provider: Luke Guevara Referrals: Luke Guevara MD [Primary Care Provider] - Activity Restrictions/Additional Instructions: Please take the prednisone as directed to reduce inflammation and wear your Koko wrap for the next few days to prevent reaccumulation of the joint effusion. Follow-up with your family doctor for repeat evaluation and return to the ER should you have any further concerns Print Language: Swedish Disposition Disposition: Home, Self Care Discharge Date/Time: 09/11/23 04:26
[2023-09-11 02:40] LABS: Appearance/Body Fluid CLOUDY; Auto B Fluid Analyzer BKGD Ct COUNTS W/IN LIMITS (W/IN LIMITS); Color/Body Fluid YELLOW; Source- Body Fluid OTHER; Source- Body Fluid SYNOVIAL
[2023-09-11] MEDS: Lidocaine 2% /Epi 1:100 (20ml) 20 ML VIAL INFILT (04:24)
[2023-09-11 04:28] LABS: CRYSTALS, BODY FLUID MONOSODIUM URATE
[2023-09-11 04:33] LABS: Body Fluid QC Type(s) BF1Q,BF2Q
[2023-09-11 07:06] LABS: Lymphocytes 8 %; Neutrophil (Segs) 92 %
[2023-09-11 07:07] LABS: Body Fluid Total Cells Counted 29.235 10^3/ul; Red Cell Count/Body Fluid 0.003 10^6/ul; White Blood Count/Body Fluid 29.185 10^3/uL
[2023-09-11 11:53] LABS: Pathologist Review Reviewed
== END 2023-09-11 04:26 | disposition home or self-care (01) ==
PROVIDERS: Emergency Provider Emergency Medicine; PCP Family Medicine; Visit Provider Emergency Medicine
DX: M25.461 Effusion, right knee (principal); M10.061 Idiopathic gout, right knee; I10 Essential (primary) hypertension; Z87.891 Personal history of nicotine dependence
CPT/HCPCS: 73562; 80048; 83605; 85025; 85652; 86140; 87070; 87075; 87205; 89050; 89060; 99284; A4216

== ENCOUNTER → 2023-10-14 | Outpatient (CLI) | payer BC, SELFPAY ==
[2023-10-14 18:22] LABS: Uric Acid 6.8 mg/dL (3.5-7.2)
== END | disposition home or self-care (01) ==
LOC: MTLAB 13:58
PROVIDERS: PCP Family Medicine; Referring Provider Family Medicine; Visit Provider Family Medicine
DX: M25.569 Pain in unspecified knee (principal)
CPT/HCPCS: 36415; 84550

== ENCOUNTER → 2024-01-02 | Outpatient (CLI) | payer BC, SELFPAY ==
[2024-01-02 10:38] LABS: Anion Gap 4 (5-15); BUN 13 mg/dL (7-18); BUN/Creat Ratio 12.9 RATIO (10-20); Chloride 111 mmol/L (98-107); Cholesterol 171 mg/dL (200); Creatinine, Serum 1.01 mg/dL (0.70-1.30); EST Glomerular Filtration Rate 79 mL/min (>60); Est Glom Filt Rate - Afr Amer 95 mL/min (>60); Glucose 99 mg/dL (74-106); High Density Lipoprotein 82 mg/dL; Potassium 4.2 mmol/L (3.5-5.1); Sodium Level 140 mmol/L (136-145); Triglycerides 75 mg/dL; Uric Acid 6.1 mg/dL (3.5-7.2); Very Low Density Lipoprotein 15 mg/dL (5-40)
== END | disposition home or self-care (01) ==
LOC: MFPLAB 08:51
PROVIDERS: PCP Family Medicine; Visit Provider Family Medicine
DX: Z00.00 Encounter for general adult medical examination without abnormal findings (principal); M10.9 Gout, unspecified; R97.20 Elevated prostate specific antigen [PSA]
CPT/HCPCS: 36415; 80048; 80061; 84153; 84550

== ENCOUNTER → 2024-02-10 | Outpatient (CLI) | payer BC, SELFPAY ==
--- NOTE | 2024-02-10 11:18 | MRI_ITS ---
STUDY: MR PROSTATE GLAND/ PELVIS WITH T WITHOUT CONTRAST REASON FOR EXAM: Male, 63 years old. ELEVATED PSA,,,TOTAL PSA 14.20 01/02/24 TECHNIQUE: Standardized fat and water weighted pulse sequences were obtained in all 3 orthogonal planes, pre-and post contrast administration. IV 20ml clariscan was administered for the contrast portion of the examination. COMPARISON: CT of abdomen and pelvis dated March 03, 2006. MRI of the prostate gland/pelvis dated May 22, 2019 FINDINGS: Prostate gland volume/size: 5.59 x 4.11 x 4.67 cm. Anterior fibromuscular stroma: Normal. Peripheral zone: Scattered linear intermediate fibrotic foci throughout the right and left peripheral zone but no discrete mass or enhancing lesion or extracapsular lesion. Central zone: Mildly heterogeneous and nodular with hyperplastic tissue and some small cysts on both the left and right sides. Also demonstrating diffuse symmetric enhancement and diffusion-weighted signal without a discrete nodule indicating a neoplasm by MR criteria. Transitional zone: Mildly heterogeneous and nodular with hyperplastic tissue and some small cysts on both the left and right sides. Also demonstrating diffuse symmetric enhancement and diffusion-weighted signal without a discrete nodule indicating a neoplasm by MR criteria. If there is abnormal PSA elevation consider biochemical malignancy/recurrence. This can be further evaluated with prostate PET/CT examinations. Prostate capsule: Intact: Seminal vesicles: Normal fluid signal bilaterally. Pelvic sidewall lymphadenopathy: None demonstrated. Bony structures: No lytic or blastic or aggressive process. No demonstrated enhancing lesions. No bone marrow edema or infiltrative marrow replacement process is seen. No visualized pathologic fractures. Bladder: No demonstrated masses or filling defects/stones. Normal urinary bladder. Normal visualized small intestine. Significant rectosigmoid diverticulosis. Vessels: No significant or large aneurysm is demonstrated. Normal osseous structures. Normal abdominal wall. Moderate hamstring tendinosis/tendinitis with thickening and peritendinous inflammatory stranding is present MRI/Pelvis W/WO Contrast IMPRESSION: 1. Transitional and central zones: Mildly heterogeneous and nodular with hyperplastic tissue and some small cysts on both the left and right sides. Also demonstrating diffuse symmetric enhancement and diffusion-weighted signal without a discrete nodule indicating a neoplasm by MR criteria. If there is abnormal PSA elevation consider biochemical malignancy/recurrence. This can be further evaluated with prostate PET/CT examinations. 2. PI-RADS 2: low (clinically significant cancer is unlikely to be present) 3. Targeted image guided biopsy of nodules or area of interest can be performed for definitive pathologic assessment of the tissue and diagnosis 4. Prostate PET/CT exam can also be performed to determine if there is viable malignant neoplasm in the prostate gland. Prostate MRI reference: 15-30% of prostate cancers can go undetected on Prostate MRI. Monitoring and assessment by Primary physician, Urology, and oncology service recommended and treated clnically. (Cancers ([place]). 2022Feb 06;15(79):5857. doi: [id number] Prostate Cancers Invisible on Multiparametric MRI: Pathologic Features in Correlation with Whole-Mount Prostatectomy Radha Boateng 1,2,*, Shon Dotson 3, Alden Hinds 1,2, Alley Maxwell 1,2, Kalpana Stallworth 4, Kwabena Bowen 5, Rodrigo Overton 6, Willian Howard 1,2, Jacoby Kapoor 1,2) Reference information: Normal prostate tissue Benign prostatic hypertrophy cancer/tumor - low signal peripheral , transitional, and central zones malignancy appears as bright on DWI and low signal on ADC map Prostate imaging-reporting and data system (PI-RADS) PI-RADS 1: very low (clinically significant cancer is highly unlikely to be present) PI-RADS 2: low (clinically significant cancer is unlikely to be present) PI-RADS 3: intermediate (the presence of clinically significant cancer is equivocal) PI-RADS 4: high (clinically significant cancer is likely to be present) PI-RADS 5: very high (clinically significant cancer is highly likely to be present) PI-RADS X: component of exam technically inadequate or not performed Prostate malignancy distribution: Peripheral zone: 70-80% Transitional zone: 10-20% Central zone: 5% or less Electronically Signed: Tung Menendez MD at 16:05 EST ,
[2024-02-12 12:08] LABS: PSA, Free 0.66 ng/mL; PSA, Free % 8.1 % (.)
== END | disposition home or self-care (01) ==
LOC: MRI 10:57 → LAB 12:45
PROVIDERS: PCP Family Medicine; Referring Provider Urology; Visit Provider Urology
DX: N40.1 Benign prostatic hyperplasia with lower urinary tract symptoms (principal); R97.20 Elevated prostate specific antigen [PSA]
CPT/HCPCS: 36415; 72197; 84153; 84154; A9575

== ENCOUNTER 2024-06-15 11:30 | Outpatient (RCR) | payer BC, SELFPAY ==
--- NOTE | 2024-05-18 13:10 | HP.PTEVAL ---
Patient's Visit Information Visit Information Visit Information: TIMOTHY RAMOS is a 63 year old M referred to Physical Therapy by Keith Barlow MD with a diagnosis of S/P menisectomy.. Date of Evaluation: 05/18/24 Physical Therapist: NAEEM Barth Visit Plan Frequency: 2x /Week Duration: 4-6 Weeks Plan: 2X/ week for 4 weeks for R knee AROM, R hip and knee strength, biking to decrease inflammation, gait training, progressive walking program, with HEP HEP: bridges, SLR, S/L hip abd and pt will look into riding his exercise bike to help decrease inflammation Subjective Subjective: Pt had surgery 04-24-24 on his meniscus. He was weight bearing with a cane right after surgery. He reports that he is doing pretty good. The first week was rough and then he was better. Last week he was able to FLY. He still gets stiff sitting for a long time. He has a slight pain going up and down the steps. He still walks with a slight limp even though not a lot of pain. He does not have a follow up with the Dr. He likes to hike and backpacking and heavy yard work ([address] [place]). He is sleeping ok. 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 He might be a little bit swelling. He has a 10 day hiking trip in August. He has a lot of arthritis in the knee and lookin at knee replacement in 5 years. Pain R knee pain: Pain Intensity (Out of 10): 0 Objective Objective: Gait: walks with decrease stance time on the R LE. LE MMT: R hip flex 11.7 and 12.3 R knee ext 11.1 and L 25.7 R knee flex 9.6 and L 11.8 R hip abd 12.9 and L 13.2 R hip ext 11.5 and L 12.8 AROM: R knee flex 125 R knee ext 0 Pt is able to heel and toe raise Pt has B tight HS Upright bike X 5 min to increase circulation and help decrease tightness Balance/Special Test Scores Lower Extremity Functional Score: 52 Goals Goal 1:: I HEP Goal Time Frame: 4-6 Weeks Goal 2:: Be able to start a progressive walking program Goal Time Frame: 4-6 Weeks Goal 3:: Increase R hip and knee strength (LE MMT: R hip flex 11.7 and 12.3 R knee ext 11.1 and L 25.7 R knee flex 9.6 and L 11.8 R hip abd 12.9 and L 13.2 R hip ext 11.5 and L 12.8). Goal Time Frame: 4-6 Weeks Goal 4:: Be able to walk with equal stance time with no antalgic gait Goal Time Frame: 4-6 Weeks Rehabilitation Potential Rehabilitation Potential: Good Anticipated Interventions Patient/Client Instruction: Educate patient on: Condition and Plan of Care For the Purpose of:: To decrease pain, To decrease swelling/inflammation, To increase ROM, To improve nutrient delivery to tissue, To improve muscle performance and motor function, To improve ability to perform ADL's, To increase tolerance to activity/condition/position, To improve performance and independence with ADL's, To decrease level of supervision to perform tasks, To improve ability of physical actions for home/community/work/leisure, To improve gait and locomotor functions, To improve health of tissue, To decrease soft tissue restriction, To increase flexibility/ROM and To improve endurance Therapeutic Exercise to Include: Strength training, Balance training, Postural training, Flexibilty training, Gait and locomotor training, Neuromotor development, Passive ROM, Active ROM and Dynamic Lumbar Stabilization For the Purpose of:: To decrease pain, To decrease swelling/inflammation, To increase ROM, To improve nutrient delivery to tissue, To improve muscle performance and motor function, To improve ability to perform ADL's, To increase tolerance to activity/condition/position, To improve performance and independence with ADL's, To decrease level of supervision to perform tasks, To improve ability of physical actions for home/community/work/leisure, To improve gait and locomotor functions, To improve health of tissue, To decrease soft tissue restriction and To increase flexibility/ROM Functional Training to Include: Gait training For the Purpose of:: To improve gait and locomotor functions Text: Thank you for the opportunity to evaluate your patient. For Medicare and Medicare HMO plans, please review the plan of care and approve it. It will need to be FAXED BACK to us at [phone] for Medicare purposes. For Medicare only, by signing this I certify the plan of care. Please let me know if there are questions or concerns regarding this plan of care. Physician Signature: Date:
--- NOTE | 2024-11-02 14:23 | HP.PT.NRP ---
Patient Information Patient Information: TIMOTHY RAMOS was seen in my office for initial evaluation on 05/18/24. The following Plan of Care was established for this patient: POC Established Initial Frequency: 2x /Week Initial Duration: 4-6 Weeks Anticipated Interventions Patient/Client Instruction: Educate patient on: Condition and Plan of Care For the Purpose of:: To decrease pain, To decrease swelling/inflammation, To increase ROM, To improve nutrient delivery to tissue, To improve muscle performance and motor function, To improve ability to perform ADL's, To increase tolerance to activity/condition/position, To improve performance and independence with ADL's, To decrease level of supervision to perform tasks, To improve ability of physical actions for home/community/work/leisure, To improve gait and locomotor functions, To improve health of tissue, To decrease soft tissue restriction, To increase flexibility/ROM and To improve endurance Therapeutic Exercise to Include: Strength training, Balance training, Postural training, Flexibilty training, Gait and locomotor training, Neuromotor development, Passive ROM, Active ROM and Dynamic Lumbar Stabilization For the Purpose of:: To decrease pain, To decrease swelling/inflammation, To increase ROM, To improve nutrient delivery to tissue, To improve muscle performance and motor function, To improve ability to perform ADL's, To increase tolerance to activity/condition/position, To improve performance and independence with ADL's, To decrease level of supervision to perform tasks, To improve ability of physical actions for home/community/work/leisure, To improve gait and locomotor functions, To improve health of tissue, To decrease soft tissue restriction and To increase flexibility/ROM Functional Training to Include: Gait training For the Purpose of:: To improve gait and locomotor functions Last Seen Last Seen: This patient was last seen in our office 06/15/24. Pertinent comments regarding their Physical therapy will appear below: DC PT At this point I will be discontinuing this patient from physical therapy. I would be happy to see this patient again in the future if found appropriate by the physician. Thank you! Niru Sahni, MPT Balance/Gait/Functional tests Balance/Special Test Scores Lower Extremity Functional Score: 54
== END 2024-06-15 19:00 | disposition home or self-care (01) ==
LOC: PT 11:30
PROVIDERS: PCP Family Medicine; Referring Provider Orthopaedic Surgery; Visit Provider Orthopaedic Surgery
DX: S83.231D Complex tear of medial meniscus, current injury, right knee, subsequent encounter (principal)
CPT/HCPCS: 97110; 97161; 97530

== ENCOUNTER → 2024-09-02 | Outpatient (CLI) | payer BC, SELFPAY ==
[2024-09-02 17:39] LABS: PSA,Total- Diagnostic 9.32 ng/mL (0.00-4.00)
== END | disposition home or self-care (01) ==
LOC: LAB 13:15
PROVIDERS: PCP Family Medicine; Referring Provider Urology; Visit Provider Urology
DX: R97.20 Elevated prostate specific antigen [PSA] (principal)
CPT/HCPCS: 36415; 84153

== ENCOUNTER → 2024-12-14 | Outpatient (CLI) | payer BC, SELFPAY ==
--- OUTSIDE RECORDS SUMMARY | 2024-12-14 11:14 | XMS RPT_ITS | CCD ---
Author Organization [facility] Care Team Providers Care Business Support Professional Name Role Phone Ismael MAGUIRE, Dr. Butler Primary Care Provider Keith Barlow MD Attending Provider [phone] Cain MAGUIRE, Keith Phoenix Referring Provider Steven MAGUIRE, Dr. Darius Montenegro Attending Provider Steven MAGUIRE, Dr. Darius Montenegro Referring Provider Ismael MAGUIRE, Dr. Butler Primary Care Provider Luke Guevara Primary Care Unavailable Darius Villatoro Attending Unavailable Darius Villatoro Referring Unavailable Darius Villatoro Consulting Unavailable Luke Guevara Primary Care Unavailable Luke Guevara Attending Unavailable Luke Guevara Primary Care Unavailable Darius Villatoro Attending Unavailable Darius Villatoro Referring Unavailable Keith Barlow III Referring Unavailkellie Guevara, Luke Primary Care Unavailable Keith Barlow III Attending Unavailkellie e Ismael, Luke Primary Care Unavailable Darius Villatoro Attending Unavailable StevenDarius Referring Unavailable Guevara, Luke Primary Care Unavailable Darius Villatoro Attending Unavailable Medications Current Medications Medication Drug Class(es) Dates Sig (Normalized) Sig (Original) predniSONE 20 mg oral tablet (2 sources) Start: 09-11-2023 take 2 tablets by mouth once daily Prednisone 20 mg tablet Active 40 mg PO DAILY 10 5 0 September 11, 2023 12:00am Pseudoephedrine / Triprolidine (9 sources) alpha-Adrenergic Agonist Start: 02-05-2014 Actifed Active February 05, 2014 12:00am Start: 02-05-2014 Actifed Active February 05, 2014 1:00am Problems Problem Classification Problem Date Documented Da te Episodic/Chronic Essential hypertension (2 sources) Hypertensive disorder; Translations: [Essential (primary) hypertension] 09-19-2023 Chronic Gout and other crystal arthropathies (2 sources) Gouty arthritis of right knee; Translations: [Gout, unspecified] 09-19-2023 Chronic Hyperplasia of prostate (1 source) Benign prostatic hyperplasia with lower urinary tract symptoms; Translations: [Benign prostatic hyperplasia with lower urinary tract symptoms] Onset: 03-13-2024 Chronic Other non-traumatic joint disorders (2 sources) Effusion of right knee joint; Translations: [Effusion, right knee] 09-19-2023 Episodic Other screening for suspected conditions (not mental disorders or infectious disease) (2 sources) Elevated prostate specific antigen [PSA]; Translations: [Elevated prostate specific antigen [PSA]] Onset: 09-01-2024 Episodic Results Test Name Value Interpretation Reference Range Facility PSA,Total- Diagnosticon PSA, DIAGNOSTIC 9.32 ng/mL High 0.00-4.00 [facility] Comment on above: Result Comment: This test was performed using the [employer] tPSA method. Measured values of a patient??sample can vary depending on the testing procedure used. PSA values determined on patient samples by different testing procedures cannot be used interchangeably. If there is a change in PSA assays while monitoring therapy, sequential testing should be performed to confirm baseline values. Performed By: #### L 501.9940 #### [facility] Laboratory [address] [place], [place], [address] Inital Evaluation (1) - PTon 05-18-2024 Inital Evaluation (1) - PT [facility] Physical Therapy Health[address] [place] [address] / REHABILITATION SERVICES INITIAL EVALUATION MR#: [id number] Acct: [id number] Name: TIN RAMOS Rep #: [id number] : 1960 63 From: Niru HARTLEY Referring DrDick: Keith Barlow MD Status: REG RCR Insurance: [facility] [employer] Patient's Visit Information Visit Information Visit Information: TIN RAMOS is a 63 year old M referred to Physical Therapy by Keith Barlow MD with a diagnosis of S/P menisectomy.. Date of Evaluation: 05/18/24 Physical Therapist: NAEEM Barth Visit Plan Frequency: 2x /Week Duration: 4-6 Weeks Plan: 2X/ week for 4 weeks for R knee AROM, R hip and knee strength, biking to decrease inflammation, gait training, progressive walking program, with HEP HEP: bridges, SLR, S/L hip abd and pt will look into riding his exercise bike to help decrease inflammation Subjective Subjective: Pt had surgery 04-24-24 on his meniscus. He was weight bearing with a cane right after surgery. He reports that he is doing pretty good. The first week was rough and then he was better. Last week he was able to FLY. He still gets stiff sitting for a long time. He has a slight pain going up and down the steps. He still walks with a slight limp even though not a lot of pain. He does not have a follow up with the Dr. He likes to hike and backpacking and heavy yard work ([address] [place]). He is sleeping ok. 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 He might be a little bit swelling. He has a 10 day hiking trip in August. He has a lot of arthritis in the knee and lookin at knee replacement in 5 years. Pain R knee pain: Pain Intensity (Out of 10): 0 Objective Objective: Gait: walks with decrease stance time on the R LE. LE MMT: R hip flex 11.7 and 12.3 R knee ext 11.1 and L 25.7 R knee flex 9.6 and L 11.8 R hip abd 12.9 and L 13.2 R hip ext 11.5 and L 12.8 AROM: R knee flex 125 R knee ext 0 Pt is able to heel and toe raise Pt has B tight HS Upright bike X 5 min to increase circulation and help decrease tightness Balance/Special Test Scores Lower Extremity Functional Score: 52 Goals Goal 1:: I HEP Goal Time Frame: 4-6 Weeks Goal 2:: Be able to start a progressive walking program Goal Time Frame: 4-6 Weeks Goal 3:: Increase R hip and knee strength (LE MMT: R hip flex 11.7 and 12.3 R knee ext 11.1 and L 25.7 R knee flex 9.6 and L 11.8 R hip abd 12.9 and L 13.2 R hip ext 11.5 and L 12.8). Goal Time Frame: 4-6 Weeks Goal 4:: Be able to walk with equal stance time with no antalgic gait Goal Time Frame: 4-6 Weeks Rehabilitation Potential Rehabilitation Potential: Good Anticipated Interventions Patient/Client Instruction: Educate patient on: Condition and Plan of Care For the Purpose of:: To decrease pain, To decrease swelling/inflammation, To increase ROM, To improve nutrient delivery to tissue, To improve muscle performance and motor function, To improve ability to perform ADL's, To increase tolerance to activity/condition/pos ition, To improve performance and independence with ADL's, To decrease level of supervision to perform tasks, To improve ability of physical actions for home/community/work/le isure, To improve gait and locomotor functions, To improve health of tissue, To decrease soft tissue restriction, To increase flexibility/ROM and To improve endurance Therapeutic Exercise to Include: Strength training, Balance training, Postural training, Flexibilty training, Gait and locomotor training, Neuromotor development, Passive ROM, Active ROM and Dynamic Lumbar Stabilization For the Purpose of:: To decrease pain, To decrease swelling/inflammation, To increase ROM, To improve nutrient delivery to tissue, To improve muscle performance and motor function, To improve ability to perform ADL's, To increase tolerance to activity/condition/pos ition, To improve performance and independence with ADL's, To decrease level of supervision to perform tasks, To improve ability of physical actions for home/community/work/le isure, To improve gait and locomotor functions, To improve health of tissue, To decrease soft tissue restriction and To increase flexibility/ROM Functional Training to Include: Gait training For the Purpose of:: To improve gait and locomotor functions Text: Thank you for the opportunity to evaluate your patient. For Medicare and Medicare HMO plans, please review the plan of care and approve it. It will need to be FAXED BACK to us at [phone] for Medicare purposes. For Medicare only, by signing this I certify the plan of care. Please let me know if there are questions or concerns regarding this plan of care. Physician Signature: Date:__ 05/18/24 1310 CC: (more content not included)... Normal [facility] PSA Total+%Freeon 02-12-2024 PSA, FREE 0.66 ng/mL Normal N/A [facility] Comment on above: Result Comment: Mauro BESS methodology. Performed By: #### L 3110.0500 #### [facility] Laboratory [address] [place], [address] PSA, FREE % 8.1 Normal . [facility] Comment on above: Result Comment: The table below lists the probability of prostate cancer for men with non-suspicious MIRANDA results and total PSA between 4 and 10 ng/mL, by patient age (Umm et al, SALVATORE 1998, 279:1542). % Free PSA 50-64 yr 65-75 yr 0.00-10.00% 56% 55% 10.01-15.00% 24% 35% 15.01-20.00% 17% 23% 20.01-25.00% 10% 20% >25.00% 5% 9% Please note: Umm et al did not make specific recommendations regarding the use of percent free PSA for any other population of men. Performed at: [address] [id number] Respiratory Therapy Technician: Fish Moralez PhD, Phone: [phone] Performed By: #### L 3110.0500 #### [facility] [address] [place], [address] PSA, TOTAL ULTR 8.150 ng/mL Abnormal 0.000-4.000 [facility] Comment on above: Result Comment: Mauro BESS methodology. According to the [employer], Serum PSA should decrease and remain at undetectable levels after radical prostatectomy. The AUA defines biochemical recurrence as an initial PSA value 0.200 ng/mL or greater followed by a subsequent confirmatory PSA value 0.200 ng/mL or greater. Values obtained with different assay methods or kits cannot be used interchangeably. Results cannot be interpreted as absolute evidence of the presence or absence of malignant disease. Performed By: #### L 3110.0500 #### [facility] [address] [place], [address] Pelvis W/WO Contraston 02-09 Pelvis W/WO Contrast [facility] Imaging Services [address] [place] [address] Pelvis W/WO Contrast MR#: [id number] Acct: [id number] Name: TIN RAMOS Rep #: [id number] : 1960 M 63 From: Tung lion MD PCP: Dr. Luke Guevara MD Status: REG CLI Study: Pelvis W/WO Contrast Date of Exam: 02/10/24 Exam# [id number] Ordering Dr: Darius Villatoro MD [id number] STUDY: MR PROSTATE GLAND/ PELVIS WITH T WITHOUT CONTRAST REASON FOR EXAM: Male, 63 years old. ELEVATED PSA,,,TOTAL PSA 14.20 01/02/24 TECHNIQUE: Standardized fat and water weighted pulse sequences were obtained in all 3 orthogonal planes, pre-and post contrast administration. IV 20ml clariscan was administered for the contrast portion of the examination. COMPARISON: CT of abdomen and pelvis dated March 03, 2006. MRI of the prostate gland/pelvis dated May 22, 2019 FINDINGS: Prostate gland volume/size: 5.59 x 4.11 x 4.67 cm. Anterior fibromuscular stroma: Normal. Peripheral zone: Scattered linear intermediate fibrotic foci throughout the right and left peripheral zone but no discrete mass or enhancing lesion or extracapsular lesion. Central zone: Mildly heterogeneous and nodular with hyperplastic tissue and some small cysts on both the left and right sides. Also demonstrating diffuse symmetric enhancement and diffusion-weighted signal without a discrete nodule indicating a neoplasm by MR criteria. Transitional zone: Mildly heterogeneous and nodular with hyperplastic tissue and some small cysts on both the left and right sides. Also demonstrating diffuse symmetric enhancement and diffusion-weighted signal without a discrete nodule indicating a neoplasm by MR criteria. If there is abnormal PSA elevation consider biochemical malignancy/recurrence. This can be further evaluated with prostate PET/CT examinations. Prostate capsule: Intact: Seminal vesicles: Normal fluid signal bilaterally. Pelvic sidewall lymphadenopathy: None demonstrated. Bony structures: No lytic or blastic or aggressive process. No demonstrated enhancing lesions. No bone marrow edema or infiltrative marrow replacement process is seen. No visualized pathologic fractures. Bladder: No demonstrated masses or filling defects/stones. Normal urinary bladder. Normal visualized small intestine. Significant rectosigmoid diverticulosis. Vessels: No significant or large aneurysm is demonstrated. Normal osseous structures. Normal abdominal wall. Moderate hamstring tendinosis/tendinitis with thickening and peritendinous inflammatory stranding is present MRI/Pelvis W/WO Contrast IMPRESSION: 1. Transitional and central zones: Mildly heterogeneous and nodular with hyperplastic tissue and some small cysts on both the left and right sides. Also demonstrating diffuse symmetric enhancement and diffusion-weighted signal without a discrete nodule indicating a neoplasm by MR criteria. If there is abnormal PSA elevation consider biochemical malignancy/recurrence. This can be further evaluated with prostate PET/CT examinations. 2. PI-RADS 2: low (clinically significant cancer is unlikely to be present) 3. Targeted image guided biopsy of nodules or area of interest can be performed for definitive pathologic assessment of the tissue and diagnosis 4. Prostate PET/CT exam can also be performed to determine if there is viable malignant neoplasm in the prostate gland. Prostate MRI reference: 15-30% of prostate cancers can go undetected on Prostate MRI. Monitoring and assessment by Primary physician, Urology, and oncology service recommended and treated clnically. (Cancers (Basel). 2022Feb 06;15(77):7397. doi: [id number] 5 Prostate Cancers Invisible on Multiparametric MRI: Pathologic Features in Correlation with Whole-Mount Prostatectomy Radha Boateng 1,2,*, Shon Dotson 3, Alden Hinds 1,2, Alley Maxwell 1,2, Kalpana Stallworth 4, Kwabena Bowen 5, Rodrigo Overton 6, Willian S Karczmar 1,2, Aytekin Antwon 1,2) Reference information: Normal prostate tissue Benign prostatic hypertrophy cancer/tumor - low signal peripheral , transitional, and central zones malignancy appears as bright on DWI and low signal on ADC map Prostate imaging-reporting and data system (PI-RADS) PI-RADS 1: very low (clinically significant cancer is highly unlikely to be present) PI-RADS 2: low (clinically significant cancer is unlikely to be present) PI-RADS 3: intermediate (the presence of clinically significant cancer is equivocal) PI-RADS 4: high (clinically significant cancer is likely to be present) PI-RADS 5: very high (clinically significant cancer is highly likely to be present) PI-RADS X: component of exam technically inade (more content not included)... Normal [facility] Basic Metabolic Profile (BMP )on 01-02-2024 BUN/CRE 12.9 RATIO Normal 10-20 [facility] Comment on above: Order Comment: PSAD- STEVEN OTHER TESTS-DAGO Performed By: #### L 501.1400, L500.4100, L501.9940, L500.2500 #### [facility] Laboratory [address] [place], [address] CA,Total 9.0 mg/dL Normal 8.5-10.1 [facility] Comment on above: Order Comment: PSAD- STEVEN OTHER TESTS-DAGO Performed By: #### L 501.1400, L500.4100, L501.9940, L500.2500 #### [facility] [address] [place], [address] Chloride [Moles/Vol] 111 mmol/L High 98-107 [facility] Comment on above: Order Comment: PSAD- STEVEN OTHER TESTS-DAGO Performed By: #### L 501.1400, L500.4100, L501.9940, L500.2500 #### [facility] [address] [place], [address] CO2 [Moles/Vol] 26.0 mmol/L Normal 21.0-32.0 [facility] Comment on above: Order Comment: PSAD- STEVEN OTHER TESTS-DAGO Performed By: #### L 501.1400, L500.4100, L501.9940, L500.2500 #### [facility] [address] [place], [address] Creatinine [Mass/Vol] 1.01 mg/dL Normal 0.70-1.30 [facility] Comment on above: Order Comment: PSAD- STEVEN OTHER TESTS-DAGO Result Comment: The validity of the calculated GFR GFRAA in patients over 70 years has not been determined. Clinical correlation is essential. Performed By: #### L 501.1400, L500.4100, L501.9940, L500.2500 #### [facility] [address] [place], [address] EST GFR - AA 95 mL/min Normal >60 [facility] Comment on above: Order Comment: PSAD- STEVEN OTHER TESTS-DAGO Result Comment: Afri can Somali GFR Calc Performed By: #### L 501.1400, L500.4100, L501.9940, L500.2500 #### [facility] [address] [place], [address] GAP 4 Low 5-15 [facility] Comment on above: Order Comment: PSAD- STEVEN OTHER TESTS-DAGO Performed By: #### L 501.1400, L500.4100, L501.9940, L500.2500 #### [facility] [address] [place], [address] GFR/1.73 sq M.predicted among non-blacks MDRD (S/P/Bld) [Vol rate/Area] 79 mL/min/{1.73_m2} Normal >60 [facility] Comment on above: Order Comment: PSAD- STEVEN OTHER TESTS-DAGO Result Comment: Non- GFR Calc Performed By: #### L 501.1400, L500.4100, L501.9940, L500.2500 #### [facility] [address] [place], [address] Glucose [Mass/Vol] 99 mg/dL Normal 74-106 [facility] Comment on above: Order Comment: PSAD- STEVEN OTHER TESTS-DAGO Performed By: #### L 501.1400, L500.4100, L501.9940, L500.2500 #### [facility] [address] [place], [address] Potassium [Moles/Vol] 4.2 mmol/L Normal 3.5-5.1 [facility] Comment on above: Order Comment: PSAD- STEVEN OTHER TESTS-DAGO Performed By: #### L 501.1400, L500.4100, L501.9940, L500.2500 #### [facility] [address] [place], [address] Sodium [Moles/Vol] 140 mmol/L Normal 136-145 [facility] Comment on above: Order Comment: PSAD- STEVEN OTHER TESTS-DAGO Performed By: #### L 501.1400, L500.4100, L501.9940, L500.2500 #### [facility] [address] [place], [address] Urea nitrogen [Mass/Vol] 13 mg/dL Normal 7-18 [facility] Comment on above: Order Comment: PSAD- STEVEN OTHER TESTS-DAGO Performed By: #### L 501.1400, L500.4100, L501.9940, L500.2500 #### [facility] [address] [place], [address] Lipid Profileon 01-02-2024 Cholesterol [Mass/Vol] 171 mg/dL Normal 200 [facility] Comment on above: Order Comment: PSAD- STEVEN OTHER TESTS-DAGO Result Comment: <200 mg/dL Desirable 200-240 mg/dL Borderline >240 mg/dL High Risk Performed By: #### L 501.1400, L500.4100, L501.9940, L500.2500 #### [facility] [address] [place], [address] Cholesterol in HDL [Mass/Vol] 82 mg/dL Normal [facility] Comment on above: Order Comment: PSAD- STEVEN OTHER TESTS-DAGO Result Comment: The drugs N-Acetylcysteine and Metamizole may falsely depress this assay. Reference Range HDL <40 mg/dL Low HDL Cholesterol HDL >or= 60 mg/dL High HDL Cholesterol Performed By: #### L 501.1400, L500.4100, L501.9940, L500.2500 #### [facility] [address] [place], [address] Cholesterol in LDL [Mass/Vol] 74 mg/dL Normal 0-130 [facility] Comment on above: Order Comment: PSAD- STEVEN OTHER TESTS-DAGO Performed By: #### L 501.1400, L500.4100, L501.9940, L500.2500 #### [facility] [address] [place], [address] Cholesterol in VLDL [Mass/Vol] 15 mg/dL Normal 5-40 [facility] Comment on above: Order Comment: PSAD- STEVEN OTHER TESTS-DAGO Performed By: #### L 501.1400, L500.4100, L501.9940, L500.2500 #### [facility] [address] [place], [address] Triglyceride [Mass/Vol] 75 mg/dL Normal [facility] Comment on above: Order Comment: PSAD- STEVEN OTHER TESTS-DAGO Result Comment: The drugs N-Acetylcysteine and Metamizole may falsely depress this assay. Serum Triglycerides Reference Interval Normal <150 mg/dL Borderline high 150 - 199 mg/dL High 200 - 499 mg/dL Very High > or = 500 mg/dL Performed By: #### L 501.1400, L500.4100, L501.9940, L500.2500 #### [facility] [address] [place], [address] PSA,Total- Diagnosticon 11-0 PSA, DIAGNOSTIC 14.20 ng/mL High 0.0-4.0 [facility] Comment on above: Order Comment: PSAD- STEVEN OTHER TESTS-DAGO Result Comment: This test was performed using the TPSA assay method for the [employer] chemistry system. Values obtained with different assay methods cannot be used interchangably. When changing PSA assays in the course of monitoring a patient, additional sequential testing should be carried out to confirm baseline values. Performed By: #### L 501.1400, L500.4100, L501.9940, L500.2500 #### [facility] [address] [place], [place], [address] Uric Acidon 01-02-2024 URIC 6.1 mg/dL Normal 3.5-7.2 [facility] Comment on above: Order Comment: PSAD- STEVEN OTHER TESTS-DAGO Result Comment: The drugs N-Acetylcysteine and Metamizole may falsely depress this assay. Performed By: #### L 501.1400, L500.4100, L501.9940, L500.2500 #### [facility] [address] [place], [place], [address] Basophil percentageOrdered B y: Luke Guevara on 06-25-2023 Basophil percentage 8.13 ng/mL 0.0-4.0 [facility] Comment on above: This test was perfor med using the TPSA assay method for the[employer] chemistry system. Values obtained with differentassay methods cannot be used interchangably.When changing PSA assays in the course of monitoring apatient, additional sequential testing should be carriedout to confirm baseline values. Basophil percentageOrdered B y: Luke Guevara on 04-08-2023 Bilirubin [Mass/Vol] 0.60 mg/dL 0.20-1.00 [facility] Comment on above: For patients on eltr ombopag therapy, use of Dimension [place] TBIL is not recommended. Chloride [Moles/Vol] 114 mmol/L 98-107 [facility] Glucose [Mass/Vol] 113 mg/dL 74-106 [facility] Comment on above: Fasting Glucose resu lt from 100 to 125 mg/dL suggests IMPAIRED HOMEOSTASIS per A.D.A. criteria. Potassium [Moles/Vol] 3.7 mmol/L 3.5-5.1 [facility] Protein [Mass/Vol] 6.9 g/dL 6.4-8.2 [facility] Sodium [Moles/Vol] 144 mmol/L 136-145 [facility] - Chemistry and C hemistry - challengeOrdered By: Luke Guevara on 04-08-2023 Albumin/Globulin [Mass ratio] 1.3 {ratio} 0.9-2.4 [facility] ALP [Catalytic activity/Vol] 93 U/L 45-117 [facility] ALT [Catalytic activity/Vol] 31 U/L 16-61 [facility] CO2 [Moles/Vol] 24.0 mmol/L 21.0-32.0 [facility] Globulin (S) [Mass/Vol] 3.0 g/dL 2.2-4.2 [facility] Urea nitrogen/Creatinine [Mass ratio] 22.0 mg/mg 10-20 [facility] [facility] No Panel InformationOrdered By: Luke Guevara on 04-08-2023 Estimated GFR (MDRD) Amer 87 mL/min >60 [facility] Comment on above: GFR Calc Estimated GFR (MDRD) Non-Af Amer 72 mL/min >60 [facility] Comment on above: Non- GFR Calc Serum or plasma calcium erik urement (mass/volume)Ordered By: Luke Guevara on 04-08-2023 Calcium [Mass/Vol] 8.9 mg/dL 8.5-10.1 [facility] Serum or plasma creatinine m easurement (mass/volume)Ordered By: Luke Guevara on 04-08-2023 Creatinine [Mass/Vol] 1.09 mg/dL 0.70-1.30 [facility] Comment on above: The validity of the calculated GFR & GFRAA in patients over 70 years has not been determined. Clinical correlation is essential. Serum or plasma urea nitroge n measurement (mass/volume)Ordered By: Luke Guevara on 04-08-2023 Urea nitrogen [Mass/Vol] 24 mg/dL 7-18 [facility] Serum or plasma uric acid me asurement (mass/volume)Ordered By: Luke Guevara on 04-08-2023 Urate [Mass/Vol] 7.3 mg/dL 3.5-7.2 [facility] Comment on above: The drugs N-Acetylcy steine and Metamizole may falsely depress this assay. Thin prep Papanicolaou smear with manual screeningOrdered By: Luke Guevara on 04-08-2023 Thin prep Papanicolaou smear with manual screening 3.9 g/dL 3.2-5.0 [facility] Thin prep Papanicolaou smear with manual screening 11 U/L 15-37 [facility] Thin prep Papanicolaou smear with manual screening 6 5-15 [facility] Absolute lymphocyte countOrd ered By: Luke Guevara on 12-26-2022 Lymphocytes Auto (Unsp spec) [#/Vol] 2.03 10*3/uL 0.83-4.51 [facility] Basophil percentageOrdered B y: Darius Villatoro on 12-26-2022 Bilirubin [Mass/Vol] 0.50 mg/dL 0.20-1.00 [facility] Comment on above: For patients on eltr ombopag therapy, use of Dimension [place] TBIL is not recommended. Chloride [Moles/Vol] 109 mmol/L 98-107 [facility] Cholesterol [Mass/Vol] 211 mg/dL <200 [facility] Comment on above: <200 mg/dL Desirable 200-240 mg/dL Borderline >240 mg/dL High Risk Glucose [Mass/Vol] 99 mg/dL 74-106 [facility] Potassium [Moles/Vol] 5.0 mmol/L 3.5-5.1 [facility] Protein [Mass/Vol] 7.0 g/dL 6.4-8.2 [facility] Sodium [Moles/Vol] 140 mmol/L 136-145 [facility] Triglyceride [Mass/Vol] 85 mg/dL <199 [facility] Comment on above: The drugs N-Acetylcy steine and Metamizole may falsely depress this assay.Serum Triglycerides Reference Interval Normal <150 mg/dL Borderline high 150 - 199 mg/dL High 200 - 499 mg/dL Very High > or = 500 mg/dL Basophil percentageOrdered B y: Luke Guevara on 12-26-2022 Basophils/100 WBC (Bld) 0.3 % 0-1 [facility] Eosinophils/100 WBC (Bld) 3.4 % 0-5 [facility] Neutrophils (Bld) [#/Vol] 4.1 10*3/uL 2.0-7.7 [facility] Neutrophils/100 WBC (Bld) 58.3 % 47-70 [facility] WBC (Bld) [#/Vol] 7.1 10*3/uL 4.4-11.0 [facility] Blood erythrocytes count (nu mber/volume)Ordered By: Luke Guevara on 12-26-2022 RBC (Bld) [#/Vol] 5.48 10*6/uL 4.6-6.2 [facility] Blood hemoglobin measurement (mass/volume)Ordered By: Luke Guevara on 12-26-2022 Hemoglobin (Bld) [Mass/Vol] 15.9 g/dL 13.0-16.5 [facility] Blood lymphocytes/100 leukoc ytesOrdered By: Luke Guevara on 12-26-2022 Lymphocytes/100 WBC (Bld) 28.8 % 19-41 [facility] Blood monocytes/100 leukocyt esOrdered By: Luke Guevara on 12-26-2022 Monocytes/100 WBC (Bld) 8.9 % 0-10 [facility] Blood platelet mean volumeOr dered By: Luke Guevara on 12-26-2022 Platelet mean volume (Bld) [Entitic vol] 9.2 fL 6.2-12.0 [facility] Determination of erythrocyte mean corpuscular volume (MCV)Ordered By: Luke Guevara on 12-26-2022 MCV (RBC) [Entitic vol] 87.0 fL 80-94 [facility] Hematocrit Auto (Bld) [Volum e fraction]Ordered By: Luke Guevara on 12-26-2022 Hematocrit (Bld) [Volume fraction] 47.7 % 40-54 [facility] Laboratory - Chemistry and C hemistry - challengeOrdered By: Darius Villatoro on 12-26-2022 ALP [Catalytic activity/Vol] 76 U/L 45-117 [facility] ALT [Catalytic activity/Vol] 36 U/L 16-61 [facility] CO2 [Moles/Vol] 26.0 mmol/L 21.0-32.0 [facility] Globulin (S) [Mass/Vol] 3.1 g/dL 2.2-4.2 [facility] Urea nitrogen/Creatinine [Mass ratio] 14.2 mg/mg 10-20 [facility] Laboratory - Hematology and Cell countsOrdered By: Luke Guevara on 12-26-2022 Erythrocyte distribution width (RBC) [Entitic vol] 40.8 fL 35.1-43.9 [facility] Erythrocyte distribution width (RBC) [Ratio] 12.8 % 11.6-14.6 [facility] Immature granulocytes/100 WBC (Bld) 0.300 % 0.0-0.9 [facility] Comment on above: IG% - Immature Granu locytes (promyelocytes, myelocytes and metamyelocytes) > 1% indicates that a LEFT SHIFT is Present. MCH (RBC) [Entitic mass] 29.0 pg 27.0-32.0 [facility] Nucleated RBC/100 WBC (Bld) [Ratio] 0 % 0-5 [facility] MCHC Auto (RBC) [Mass/Vol]Or dered By: Luke Guevara on 12-26-2022 MCHC (RBC) [Mass/Vol] 33.3 g/dL 32-36 [facility] No Panel InformationOrdered By: Darius Villatoro on 12-26-2022 Estimated GFR (MDRD) Amer 78 mL/min >60 [facility] Comment on above: GFR Calc Estimated GFR (MDRD) Non-Af Amer 65 mL/min >60 [facility] Comment on above: Non- GFR Calc Prostate Specific Antigen Total 8.47 ng/mL 0.0-4.0 [facility] Comment on above: This test was perfor med using the TPSA assay method for the[facility]. Values obtained with differentassay methods cannot be used interchangably.When changing PSA assays in the course of monitoring apatient, additional sequential testing should be carriedout to confirm baseline values. Platelets bldOrdered By: Saida Guevara on 12-26-2022 Platelets (Bld) [#/Vol] 225 10*3/uL 150-450 [facility] Serum or plasma albumin erik urement (mass/volume)Ordered By: Darius Villatoro on 12-26-2022 Albumin [Mass/Vol] 3.9 g/dL 3.2-5.0 [facility] Serum or plasma albumin/glob ulin mass ratioOrdered By: Darius Villatoro on 12-26-2022 Albumin/Globulin [Mass ratio] 1.3 {ratio} 0.9-2.4 [facility] Serum or plasma calcium erik urement (mass/volume)Ordered By: Darius Villatoro on 12-26-2022 Calcium [Mass/Vol] 8.8 mg/dL 8.5-10.1 [facility] Serum or plasma cholesterol in HDL measurement (mass/volume)Ordered By: Darius Villatoro on 12-26-2022 Cholesterol in HDL [Mass/Vol] 69 mg/dL >40 [facility] Comment on above: The drugs N-Acetylcy steine and Metamizole may falsely depress this assay. Reference Range HDL <40 mg/dL Low HDL Cholesterol HDL >or= 60 mg/dL High HDL Cholesterol Serum or plasma cholesterol in VLDL measurement (mass/volume)Ordered By: Darius Villatoro on 12-26-2022 Cholesterol in VLDL [Mass/Vol] 17 mg/dL 5-40 [facility] Serum or plasma creatinine m easurement (mass/volume)Ordered By: Darius Villatoro on 12-26-2022 Creatinine [Mass/Vol] 1.20 mg/dL 0.70-1.30 [facility] Comment on above: The validity of the calculated GFR & GFRAA in patients over 70 years has not been determined. Clinical correlation is essential. Serum or plasma low density lipoprotein (LDL) cholesterol measurement (mass/volume)Ordered By: Darius Villatoro on 12-26-2022 Cholesterol in LDL [Mass/Vol] 125 mg/dL 0-130 [facility] Serum or plasma urea nitroge n measurement (mass/volume)Ordered By: Darius Villatoro on 12-26-2022 Urea nitrogen [Mass/Vol] 17 mg/dL 7-18 [facility] Thin prep Papanicolaou smear with manual screeningOrdered By: Darius Villatoro 12-26-2022 Thin prep Papanicolaou smear with manual screening 18 U/L 15-37 [facility] Thin prep Papanicolaou smear with manual screening 5 5-15 [facility] Absolute lymphocyte countOrd ered By: Luke Guevara on 09-13-2022 Lymphocytes Auto (Unsp spec) [#/Vol] 0.59 10*3/uL 0.83-4.51 [facility] Basophil percentageOrdered B y: Luke Guevara on 09-13-2022 Basophils/100 WBC (Bld) 0.3 % 0-1 [facility] Chloride [Moles/Vol] 104 mmol/L 98-107 [facility] Eosinophils/100 WBC (Bld) 0.7 % 0-5 [facility] Glucose [Mass/Vol] 148 mg/dL 74-106 [facility] Comment on above: Fasting Glucose resu lt greater than or equal to 126 mg/dL suggests DIABETES MELLITUS per A.D.A. criteria. Neutrophils (Bld) [#/Vol] 5.0 10*3/uL 2.0-7.7 [facility] Neutrophils/100 WBC (Bld) 75.7 % 47-70 [facility] Potassium [Moles/Vol] 4.0 mmol/L 3.5-5.1 [facility] Sodium [Moles/Vol] 135 mmol/L 136-145 [facility] WBC (Bld) [#/Vol] 6.7 10*3/uL 4.4-11.0 [facility] Blood erythrocytes count (nu mber/volume)Ordered By: Luke Guevara on 09-13-2022 RBC (Bld) [#/Vol] 5.66 10*6/uL 4.6-6.2 [facility] Blood hemoglobin measurement (mass/volume)Ordered By: Luke Guevara on 09-13-2022 Hemoglobin (Bld) [Mass/Vol] 16.7 g/dL 13.0-16.5 [facility] Blood lymphocytes/100 leukoc ytesOrdered By: Luke Guevara on 09-13-2022 Lymphocytes/100 WBC (Bld) 8.8 % 19-41 [facility] Blood manual differential co mment interpretation (narrative result)Ordered By: Luke Guevara on 09-13-2022 Manual differential comment Christian (Bld) [Interp] COMMENT [facility] Comment on above: LYMPHOPENIA. Blood monocytes/100 leukocyt esOrdered By: Luke Guevara on 09-13-2022 Monocytes/100 WBC (Bld) 14.1 % 0-10 [facility] Blood platelet mean volumeOr dered By: Luke Guevara on 09-13-2022 Platelet mean volume (Bld) [Entitic vol] 9.8 fL 6.2-12.0 [facility] Determination of erythrocyte mean corpuscular volume (MCV)Ordered By: Luke Guevara on 09-13-2022 MCV (RBC) [Entitic vol] 89.4 fL 80-94 [facility] Hematocrit Auto (Bld) [Volum e fraction]Ordered By: Luke Guevara on 09-13-2022 Hematocrit (Bld) [Volume fraction] 50.6 % 40-54 [facility] Laboratory - Chemistry and C hemistry - challengeOrdered By: Luke Guevara on 09-13-2022 CO2 [Moles/Vol] 25.0 mmol/L 21.0-32.0 [facility] Urea nitrogen/Creatinine [Mass ratio] 13.4 mg/mg 10-20 [facility] Laboratory - Hematology and Cell countsOrdered By: Luke Guevara on 09-13-2022 Erythrocyte distribution width (RBC) [Entitic vol] 40.0 fL 35.1-43.9 [facility] Erythrocyte distribution width (RBC) [Ratio] 12.2 % 11.6-14.6 [facility] Immature granulocytes/100 WBC (Bld) 0.400 % 0.0-0.9 [facility] Comment on above: IG% - Immature Granu locytes (promyelocytes, myelocytes and metamyelocytes) > 1% indicates that a LEFT SHIFT is Present. MCH (RBC) [Entitic mass] 29.5 pg 27.0-32.0 [facility] Nucleated RBC/100 WBC (Bld) [Ratio] 0 % 0-5 [facility] MCHC Auto (RBC) [Mass/Vol]Or dered By: Luke Guevara on 09-13-2022 MCHC (RBC) [Mass/Vol] 33.0 g/dL 32-36 [facility] No Panel InformationOrdered By: Luke Guevara on 09-13-2022 Estimated GFR (MDRD) Amer 65 mL/min >60 [facility] Comment on above: GFR Calc Estimated GFR (MDRD) Non-Af Amer 53 mL/min >60 [facility] Comment on above: Non- GFR Calc Platelets bldOrdered By: Saida Guevara on 09-13-2022 Platelets (Bld) [#/Vol] 143 10*3/uL 150-450 [facility] Serum or plasma calcium erik urement (mass/volume)Ordered By: Luke Guevara on 09-13-2022 Calcium [Mass/Vol] 9.1 mg/dL 8.5-10.1 [facility] Serum or plasma creatinine m easurement (mass/volume)Ordered By: Luke Guevara on 09-13-2022 Creatinine [Mass/Vol] 1.42 mg/dL 0.70-1.30 [facility] Comment on above: The validity of the calculated GFR & GFRAA in patients over 70 years has not been determined. Clinical correlation is essential. Serum or plasma urea nitroge n measurement (mass/volume)Ordered By: Luke Guevara on 09-13-2022 Urea nitrogen [Mass/Vol] 19 mg/dL 7-18 [facility] Thin prep Papanicolaou smear with manual screeningOrdered By: Luke Guevara on 09-13-2022 Thin prep Papanicolaou smear with manual screening 6 5-15 [facility] Thin prep Papanicolaou smear with manual screening Negative Negative [facility] Comment on above: Lyme antibodies not detected. Reflex testing is notindicated.No laboratory evidence of infection with B. burgdorferi(Lyme disease). Negative results may occur in patientsrecently infected (less than or equal to 14 days) with B.burgdorferi. If recent infection is suspected, repeattesting on a new sample collected in 7 to 14 days isrecommended.Performed at: [facility] [id number] Director: Fish Moralez PhD, Phone: [phone] No Panel InformationOrdered By: Dr. Guevara on 06-11-2022 Prostate Specific Antigen Total 8.97 ng/mL 0.0-4.0 [facility] Comment on above: This test was perfor med using the TPSA assay method for the[facility] chemistry system. Values obtained with differentassay methods cannot be used interchangably.When changing PSA assays in the course of monitoring apatient, additional sequential testing should be carriedout to confirm baseline values. Basophil percentageon 2021 Chloride [Moles/Vol] 109 mmol/L 98-107 [facility] Work Phone: Cholesterol [Mass/Vol] 192 mg/dL <200 [facility] Work Phone: Comment on above: <200 mg/dL Desirable 200-240 mg/dL Borderline >240 mg/dL High Risk Glucose [Mass/Vol] 106 mg/dL 74-106 [facility] Work Phone: Comment on above: Fasting Glucose resu lt from 100 to 125 mg/dL suggests IMPAIRED HOMEOSTASIS per A.D.A. criteria. Potassium [Moles/Vol] 4.2 mmol/L 3.5-5.1 [facility] Work Phone: Sodium [Moles/Vol] 140 mmol/L 136-145 [facility] Work Phone: Testosterone [Mass/Vol] 400.87 ng/dL [facility] Work Phone: Comment on above: CENTRAL 90% REFERENC E RANGES MALE AGE <50 197.44 - 669.58 ng/dL MALE AGE > or = 50 187.72 - 684.19 ng/dL FEMALE AGE <50 8.38 - 35.01 ng/dL FEMALE AGE > or = 50 <7.00 - 35.92 ng/dL Effective as of 09/20/20 Triglyceride [Mass/Vol] 95 mg/dL <199 [facility] Work Phone: Comment on above: The drugs N-Acetylcy steine and Metamizole may falsely depress this assay.Serum Triglycerides Reference Interval Normal <150 mg/dL Borderline high 150 - 199 mg/dL High 200 - 499 mg/dL Very High > or = 500 mg/dL Laboratory - Chemistry and C hemistry - challengeon 10-25-2021 CO2 [Moles/Vol] 26.0 mmol/L 21.0-32.0 [facility] Work Phone: Urea nitrogen/Creatinine [Mass ratio] 14.4 mg/mg 10-20 [facility] Work Phone: No Panel Informationon 10-25 Estimated GFR (MDRD) Amer 70 mL/min >60 [facility] Work Phone: Comment on above: GFR Calc Estimated GFR (MDRD) Non-Af Amer 58 mL/min >60 [facility] Work Phone: Comment on above: Non- GFR Calc Prostate Specific Antigen Screen 8.73 ng/mL 0.00-4.00 [facility] Work Phone: Comment on above: This test was perfor med using the TPSA assay method for [employer] chemistry system. Values obtained with differentassay methods cannot be used interchangably.When changing PSA assays in the course of monitoring apatient, additional sequential testing should be carriedout to confirm baseline values. Thyroid Stimulating Hormone (TSH) 1.40 uIU/mL 0.358-3.74 [facility] Work Phone: Vitamin D 25-Hydroxy 19.3 ng/mL [facility] Work Phone: Comment on above: Vitamin D 25(OH) Sta tus Range Deficiency <20 ng/mL (50nmol/L) Insufficiency 20 - 30 ng/mL (50 - 75 nmol/L) Sufficiency 30 - 100 ng/mL (75 - 250 nmol/L) Toxicity >100 ng/mL (>250 nmol/L) Serum or plasma calcium erik urement (mass/volume)on 10-25-2021 Calcium [Mass/Vol] 9.2 mg/dL 8.5-10.1 [facility] Work Phone: Serum or plasma cholesterol in HDL measurement (mass/volume)on 10-25-2021 Cholesterol in HDL [Mass/Vol] 57 mg/dL >40 [facility] Work Phone: Comment on above: The drugs N-Acetylcy steine and Metamizole may falsely depress this assay. Reference Range HDL <40 mg/dL Low HDL Cholesterol HDL >or= 60 mg/dL High HDL Cholesterol Serum or plasma cholesterol in VLDL measurement (mass/volume)on 10-25-2021 Cholesterol in VLDL [Mass/Vol] 19 mg/dL 5-40 [facility] Work Phone: Serum or plasma creatinine m easurement (mass/volume)on 10-25-2021 Creatinine [Mass/Vol] 1.32 mg/dL 0.70-1.30 [facility] Work Phone: Comment on above: The validity of the calculated GFR & GFRAA in patients over 70 years has not been determined. Clinical correlation is essential. Serum or plasma low density lipoprotein (LDL) cholesterol measurement (mass/volume)on 10-25-2021 Cholesterol in LDL [Mass/Vol] 116 mg/dL 0-130 [facility] Work Phone: Serum or plasma urea nitroge n measurement (mass/volume)on 10-25-2021 Urea nitrogen [Mass/Vol] 19 mg/dL 7-18 [facility] Work Phone: Thin prep Papanicolaou smear with manual screeningon 10-25-2021 Thin prep Papanicolaou smear with manual screening 5 5-15 [facility] Work Phone: CNOVon 05-12-2021 CNOV Office Visit (UCTR ) TIN RAMOS ([id number]) 1960 M Date Time Provider Department 05/12/21 10:45 AM [facility] During your visit today, we recorded the following information about you: Temperature Pulse Respiration Blood pressure 97.5 degrees 77/minute 18/minute 128/92 Weight 108.9 kg Yarely Lloyd APRN.CNP 05/12/2021 11:07 AM Signed Subjective HPI HPI Tin Ramos is a 60 year old male who [...] 05/27/2017 Colonoscopy - PAST SURGICAL HISTORY OF 2003 Cyst removed from neck - TONSILLECTOMY PRIMARY/SECONDARY ALLERGIES Patient has no known allergies. MEDICATIONS acetaminophen (TYLENOL) 325 mg tablet Take 650 mg by mouth every 6 hours as needed. IBUPROFEN ORAL Take by mouth as needed. pseudoephedrine-tripro lidine (ACTIFED) 2.5-60 mg tab Takes 2 daily [...] - other (ASCVD [Other]) Maternal Grandfather from [place] in late 70's - other (Cardiac [Other]) [...] daily - Drug use: No Comment: h/o casa (in college) x 4-5 years Quit ROS [...] DOSE PACK Agrees to plan Declines avs Yarely Lloyd APRN.CARDIOGRAPHER Referring Provider: SELF [200] Allergies As of Date: 05/12/2021 (No Known Allergies) Date Reviewed: 05/12/2021 Reviewed by: Alix Cheung MA - Fully Assessed Reason for Visit: Pain (Elbow Pain) [1344] Cmt: L arm possible bursitis x1 day Primary Visit Diagnosis:Olecranon bursitis of left elbow [M70.22] Order(s):methylPREDNIS olone (MEDROL, NARAYAN,) 4 mg Dose-PackFollow dosing instructions, take with food.Disp: 1 PackageRfl: 0 Prescriptions as of 05/12/2021 - methylPREDNISolone (MEDROL, NARAYAN,) 4 mg Dose-Pack Follow dosing instructions, take with food. - acetaminophen (TYLENOL) 325 mg tablet Take 650 mg by mouth every 6 hours as needed. - IBUPROFEN ORAL Take by mouth as needed. - meloxicam (MOBIC) 15 mg tablet Take 1 tablet by mouth once daily. for pain. Take with food. - pseudoephedrine-tripro lidine (ACTIFED) 2.5-60 mg tab Takes 2 daily to control congestion and allergy symptoms Problem List As Of Date 05/12/2021 Noted Resolved COLON POLYP [D12.6] CHRONIC RHINITIS [J31.0] DIVERTICULOSIS OF COLON W/O BLEED [K57.30] INT HEMORRHOID W/O COM (more content not included)... Normal [facility] Encounters Encounter Date Encounter Type Care Provider Facility Start: 09-02-2024 End: 09-02-[address] Luke Guevara MD Work Phone: -Laboratory Start: 09-02-2024 End: 09-02-[address] Darius Villatoro MD -Laboratory Work Phone: Start: 09-02-2024 End: 09-02-2024 ambulatory Luke Guevara Facility:[facility] Start: 07-17-2024 ambulatory Luke Guevara Facility:[facility] Start: 06-15-2024 End: 06-15-2024 ambulatory Keith Barlow III Facility:[facility] Start: 06-15-2024 Registered Recurring Keith king MD -Physical Therapy Work Phone: Start: 02-10-2024 End: 02-10-2024 ambulatory Luke Guevara Facility:[facility] Start: 01-27-2024 Encounter for genera l adult medical examination without abnormal findings Luke Guevara [facility] Start: 01-02-2024 End: 01-02-2024 ambulatory Darius Villatoro Facility:[facility] Start: 06-25-2023 End: 06-25-2023 ambulatory [facility] Work Phone: Start: 06-25-2023 End: 06-25-2023 Patient encounter procedure [facility], Gregoria Guerrero Start: 04-15-2023 End: 04-15-2023 ambulatory [facility] Work Phone: Start: 04-15-2023 End: 04-15-2023 Discharged Recurring [facility]-Physical Therapy Work Phone: Start: 04-08-2023 End: 04-08-2023 ambulatory [facility] Work Phone: Start: 04-08-2023 End: 04-08-2023 Patient encounter procedure [facility] Start: 12-26-2022 End: 12-26-2022 ambulatory [facility] Work Phone: Start: 12-26-2022 End: 12-26-2022 [facility] Start: 09-13-2022 End: 09-13-2022 Patient encounter procedure [facility] Start: 06-11-2022 End: 06-11-2022 ambulatory [facility] Work Phone: Start: 06-11-2022 End: 06-11-2022 Patient encounter procedure [facility] Start: 12-05-2021 End: 12-05-2021 ambulatory [facility] Work Phone: Start: 12-05-2021 End: 12-05-2021 [facility] Start: 10-25-2021 End: 10-25-2021 ambulatory [facility] Work Phone: Start: 10-25-2021 End: 10-25-2021 Patient encounter procedure [facility] Procedures Date Procedure Procedure Detail Performing Clinician Start: 09-02-2024 Assay of prostate sp ecific antigen total Dr. Luke Guevara MD Work Phone: Comment on above: This test was perfor med using the [employer] tPSA method. Measured values of a patient sample can vary depending on the testing procedure used. PSA values determined on patient samples by different testing procedures cannot be used interchangeably. If there is a change in PSA assays while monitoring therapy, sequential testing should be performed to confirm baseline values. Plan of Treatment Date Care Activity Detail Author Start: 03-04-2025 ambulatory Ambulatory Facility:[facility] Payers Date Payer Category Payer Unknown [id number] 2024 Self-pay [id number] 2024 Unknown [id number] Unknown [id number] Unknown [id number] 2.16.8 [id number] Unknown [id number] 2.16.8 [id number] Unknown [id number] 2.16.8 [id number] Unknown [id number] 2.16.8 [id number] Unknown [id number] 2.16.8 [id number] Unknown [id number] 2.16.8 [id number] Social History Date Type Detail Facility Start: 12-31-2018 End: 12-31-2018 Tobacco smoking status [facility] Unknown if ever smoked [facility] Start: 1960 Sex Assigned At Male [facility] Start: 09-11-2023 Tobacco smoking stat us [facility] Ex-smoker (finding) [facility] Progress note 05-12-2021 Note Date & Type Note Facility 05-12-2021 Note HNO ID: [id number] Author: Yarely Lloyd APRN.CARDIOGRAPHER Service: ? Author Type: Nurse Practitioner Type: Progress Notes Filed: 05/12/2021 11:07 AM Note Text: Subjective HPI HPI Tin Ramos is a 60 year old male who [...] - other (ASCVD [Other]) Maternal Grandfather from [place] in late 70's - other (Cardiac [Other]) [...] A DOSE PACK Agrees to plan Declines mariia Lloyd APRN.CARDIOGRAPHER [facility] Evaluation note Note Date & Type Note Facility Evaluation note No assessment information availa ble [facility] Work Phone: Reason for referral (narrative) Note Date & Type Note Facility Reason for referral (narrative) No reason for referral information available [facility] Work Phone: Summary Purpose Family History No Family History Records FoundNo Family History Records Found Advance Directives No Advanced Directives Records FoundNo Advanced Directives Records Found Chief Complaint and Reason for Visit Chief Complaint PSA Chief Complaint PERANEAL TENDONITIS. RX HERE Chief Complaint Admit Date RIGHT KNEE, POST SURGERY. RX WITH PATIMERLENE Mustafa June 15, 2024 11:30am Additional Source Comments (unrecognized sect ion and content) No Status Records FoundNo Status Records Found INFORMATION SOURCE (unrecogn ized section and content) DATE CREATED AUTHOR 05/13/[address] [facility] DATE CREATED AUTHOR AUTHOR'S ORGANIZ ATION 11/08/2024 [facility] Goals (unrecognized section and content) Goals may be documented in a n alternate sectionGoals may be documented in an alternate sectionGoals may be documented in an alternate sectionGoals may be documented in an alternate sectionGoals may be documented in an alternate sectionGoals may be documented in an alternate sectionGoals may be documented in an alternate sectionGoals may be documented in an alternate sectionGoals may be documented in an alternate section Care Teams (unrecognized sec tion and content) Team Status: Active Member Role Status Dates Dr. Luke Guevara MD Family Provider Active Team Status: Inactive Member Role Status Dates Dr. Luke Guevara MD Attending Provider Active Team Status: Active Member Role Status Dates Dr. Luke Guevara MD Family Provider Active Dr. Luke Guevara MD Primary Care Provider Active Team Status: Inactive Member Role Status Dates Dr. Luke Guevaar MD Primary Care Provider, Attending Provider Active Team Status: Inactive Member Role Status Dates Dr. Luke Guevara MD Primary Care Provider Active Dr. Darius Villatoro MD Attending Provider, Referr ing Provider Active Team Status: Inactive Member Role Status Dates Dr. Luke Guevara MD Primary Care Provider Active Dr. Priyank Santoyo DPM Attending Provider, Referri ng Provider Active Team Status: Active Member Role/Relationship Status Dates Dr. Luke Guevara MD Primary Care Provider Active Team Status: Active Member Role/Relationship Status Dates Dr. Luke Guevara MD Primary Care Provider Active Start: June 15, 2024 Keith Barlow III, MD Attending Provider Active Start: June 15, 2024 Keith Barlow III, MD Referring Provider Active Start: June 15, 2024 Team Status: Inactive Member Role/Relationship Status Dates Dr. Luke Guevara MD Primary Care Provider Active Start: September 02, 2024 End: September 02, 2024 Dr. Darius Villatoro MD Attending Provider Active Start: September 02, 2024 End: September 02, 2024 Dr. Darius Villatoro MD Referring Provider Active Start: September 02, 2024 End: September 02, 2024 Team Status: Inactive Member Role/Relationship Status Dates Dr. Luke Guevara MD Primary Care Provider Active Start: September 02, 2024 End: September 02, 2024 Dr. Darius Villatoro MD Attending Provider Active Start: September 02, 2024 End: September 02, 2024 Dr. Darius Villatoro MD Referring Provider Active Start: September 02, 2024 End: September 02, 2024 FOR RECORDS PERTAINING TO PATIENTS WHO ARE [...] BE BASED ON THE PRIMARY CLINICAL RECORDS. [facility] [employer] [facility]. provides no warranty or guarantee of the accuracy or completeness of information in this document.
[2024-12-14 13:12] LABS: AST(SGOT) 16 U/L (<=37); Alanine Aminotransfer ALT/SGPT 23 U/L (<=46); Albumin, Serum 4.5 g/dL (3.4-4.8); Alkaline Phosphatase 96 U/L (40-129); Anion Gap 14 (5-15); BUN 18 mg/dL (4-19); BUN/Creat Ratio 17.3 RATIO (10-20); Calcium,Total 9.3 mg/dL (7.6-11.0); Carbon Dioxide 23.4 mmol/L (21.0-32.0); Chloride 103 mmol/L (98-108); Cholesterol 189 mg/dL (<=200); Globulin 2.6 g/dL (2.2-4.2); Glucose 99 mg/dL (70-99); Low Density Lipoprotein Calc. 92 mg/dL; PSA,Total - Annual Screen 16.30 ng/mL (0.02-4.00); Potassium 3.6 mmol/L (3.3-5.1); Triglycerides 136 mg/dL; Uric Acid 8.0 mg/dL (3.5-7.2); Very Low Density Lipoprotein 27 mg/dL (5-40); cholesterol:hdl ratio screen 2.58
[2024-12-18 12:08] LABS: Testosterone, % Free 3.09 % (1.50-4.20); Testosterone, Free 9.67 ng/dL (5.00-21.00)
== END | disposition home or self-care (01) ==
LOC: MFPLAB 10:24
PROVIDERS: PCP Family Medicine; Visit Provider Family Medicine
DX: M10.9 Gout, unspecified (principal); Z12.5 Encounter for screening for malignant neoplasm of prostate; Z13.1 Encounter for screening for diabetes mellitus; Z13.220 Encounter for screening for lipoid disorders; Z13.29 Encounter for screening for other suspected endocrine disorder
CPT/HCPCS: 36415; 80053; 80061; 84153; 84402; 84403; 84443; 84550; G0103

== ENCOUNTER → 2025-01-12 | Outpatient (CLI) | payer BC, SELFPAY ==
--- NOTE | 2025-01-12 13:00 | PROSBIL_PTH ---
PATIENT: TIMOTHY RAMOS LOC: [facility] U#:[id number] AGE/SX: 64/M ROOM: RE01/12/[address]: Dr. Darius Villatoro MD : 1960 BED: DIS: 01/12/2025 SPEC #: [id number] RECD: 01/12/25 14:58 STATUS: MAGGIE REMichaela #: [id number] STEVEN: 01/12/25 13:[address]: Darius Villatoro DEPT: SURGICAL PATHOLOGY RECD BY: Anish Delcid ENTERED: 01/12/25 15:33 SP TYPE: PROST BX OT DR: Dr. Luke Guevara MD Tissues: A - PROSTATE RIGHT B - PROSTATE RIGHT C - PROSTATE RIGHT D - PROSTATE LEFT E - PROSTATE LEFT F - PROSTATE LEFT Procedures: PROSTATE BX HEADER OPERATION: Prostate biopsy PRE-OP DIAGNOSIS: Elevated PSA TISSUE SUBMITTED: A - Right apex, B - Right mid, C - Right base, D - Left apex, E - Left mid, F - Left base MICROSCOPIC DIAGNOSIS A. Prostate, right, apex, biopsy: * Benign prostatic tissue B. Prostate, right, mid, biopsy: * Benign prostatic tissue C. Prostate, right, base, biopsy: * Benign prostatic tissue D. Prostate, left, apex, biopsy: * Benign prostatic tissue E. Prostate, left, mid, biopsy: * Benign prostatic tissue F. Prostate, left, base, biopsy: * Benign prostatic tissue MICROSCOPIC DESCRIPTION Slides are reviewed. GROSS DESCRIPTION Received in 6 formalin containers labeled with the patient's name and date of . Designated as: A. RA are 2 michelle tissue cores, 1.7 cm and 1.9 cm in length by 0.1 cm in diameter. Entirely submitted in 1 cassette. B. RM are 2 michelle tissue cores, 1.4 cm and 1.7 cm in length by 0.1 cm in diameter. Entirely submitted in 1 cassette. C. RB are 2 michelle tissue cores, 1.6 cm and 2.3 cm in length by 0.1 cm in diameter. Entirely submitted in 1 cassette. D. LA are 3 michelle tissue core fragments, 0.6 cm to 1.6 cm in length by 0.1 cm in diameter. Entirely submitted in 1 cassette. E. LM are 5 michelle tissue core fragments, 0.3 cm to 2.0 cm in length by 0.1 cm in diameter. Entirely submitted in 1 cassette. F. LB are 2 michelle tissue cores, 1.8 cm and 1.9 cm in length by 0.1 cm in diameter. Entirely submitted in 1 cassette. [place] 01/12/2025 CPT:49784f5
--- OUTSIDE RECORDS SUMMARY | 2025-01-12 19:19 | XMS RPT_ITS | CCD ---
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 Butler Primary Care Provider Cain MAGUIRE, Keith Phoenix Attending Provider Cain MAGUIRE, Keith Phoenix Referring Provider Steven MAGUIRE, Dr. Darius Montenegro Attending Provider Steven MAGUIRE, Dr. Darius Montenegro Referring Provider Ismael MAGUIRE, Dr. Butler Primary Care Provider [phone] Luke Guevara Primary Care Unavailable Darius Villatoro Attending Unavailable StevenDarius Referring Unavailable Guevara, Luke Primary Care Unavailable Steven, Darius Montenegro Attending Unavailable Steven, Darius Montenegro Referring Unavailable Guevara, Luke Primary Care Unavailable Cain BRODERICK, Keith Phoenix Attending Unavailkellie Barlow III, Keith Phoenix Referring Unavailabl e Luke Guevara Primary Care Unavailable StevenDarius Attending Unavailable Steven, Darius Montenegro Referring Unavailable Guevara, Luke Primary Care Unavailable Guevara, Luke Attending Unavailable StevenDarius Consulting Unavailable Guevara, Luke Attending Unavailable Guevara, Lkue Primary Care Unavailable Guevara, Luke Primary Care Unavailable StevenDarius Attending Unavailable Medications Current Medications Medication Drug [...] Actifed Active February 05, 2014 1:00am Problems Active Problems Problem Classification Problem Date Documented Da te Episodic/Chronic Essential hypertension (2 sources) Hypertensive disorder; Translations: [Essential (primary) hypertension] 09-19-2023 Chronic Gout and other crystal arthropathies (3 sources) Gouty arthritis of right knee; Translations: [Gout, unspecified] Onset: 12-22-2024 09-19-2023 Chronic Hyperplasia of prostate (1 source) Benign prostatic hyperplasia with lower urinary tract symptoms; Translations: [Benign prostatic hyperplasia with lower urinary tract symptoms] Onset: 03-13-2024 Chronic Other non-traumatic joint disorders (2 sources) Effusion of right knee joint; Translations: [Effusion, right knee] 09-19-2023 Episodic Past or Other Problems Problem Classification Problem Date Documented Da te Episodic/Chronic Other screening for suspected conditions (not mental disorders or infectious disease) (2 sources) Elevated prostate specific antigen [PSA]; Translations: [Elevated prostate specific antigen [PSA]] Onset: 09-01-2024 Episodic Results Test Name Value Interpretation Reference Range Facility Testosterone, Total / Freeon 12-18-2024 TESTOSTER,FREE 9.67 ng/dL Normal 5.00-21.00 [facility] Comment on above: Order Comment: PSAD- STEVEN OTHER TESTS-DAGO Performed By: #### L 501.9940, L500.2500, L501.1400, L500.4100 #### [facility] [address] [place], [address] TESTOSTER,TOTAL 313 ng/dL Normal 264-916 [facility] Comment on above: Order Comment: PSAD- STEVEN OTHER TESTS-DAGO Result Comment: Adul t male reference interval is based on a population of healthy nonobese males (BMI <30) between 19 and 39 years old. triny Sellers.al. JCEM 2017,102;2749-0961. PMID: [id number]. Performed By: #### L 501.9940, L500.2500, L501.1400, L500.4100 #### [facility] [address] [place], [address] TESTOSTERONE,%F 3.09 Normal 1.50-4.20 [facility] Comment on above: Order Comment: PSAD- STEVEN OTHER TESTS-DAGO Result Comment: Perf ormed at: - [facility] [id number] [employer]ens Generator: Fish Moralez PhD, Phone: [phone] Performed at: - [facility] [id number] [employer] Generator: Neema Paredes MD, Phone: [phone] Performed By: #### L 501.9940, L500.2500, L501.1400, L500.4100 #### [facility] [address] [place], [address] Comprehensive Metabolic Prof [facility] 12-14-2024 Albumin [Mass/Vol] 4.5 g/dL Normal 3.4-4.8 [facility] Comment on above: Performed By: #### L 3100.5310, L500.4100, L501.9910, L501.9520, L501.1400, L500.4050 #### [facility] [address] [place], [address] Albumin/Globulin [Mass ratio] 1.7 {ratio} Normal 0.9-2.4 [facility] Comment on above: Performed By: #### L 3100.5310, L500.4100, L501.9910, L501.9520, L501.1400, L500.4050 #### [facility] [address] [place], [address] ALK PHOS 96 U/L Normal 40-129 [facility] Comment on above: Performed By: #### L 3100.5310, L500.4100, L501.9910, L501.9520, L501.1400, L500.4050 #### [facility] [address] [place], [address] ALT [Catalytic activity/Vol] 23 U/L Normal <=46 [facility] Comment on above: Performed By: #### L 3100.5310, L500.4100, L501.9910, L501.9520, L501.1400, L500.4050 #### [facility] [address] [place], [address] AST [Catalytic activity/Vol] 16 U/L Normal <=37 [facility] Comment on above: Performed By: #### L 3100.5310, L500.4100, L501.9910, L501.9520, L501.1400, L500.4050 #### [facility] [address] [place], [address] Bilirubin [Mass/Vol] 0.84 mg/dL Normal 0.00-1.30 [facility] Comment on above: Performed By: #### L 3100.5310, L500.4100, L501.9910, L501.9520, L501.1400, L500.4050 #### [facility] [address] [place], [address] BUN/CRE 17.3 RATIO Normal 10-20 [facility] Comment on above: Performed By: #### L 3100.5310, L500.4100, L501.9910, L501.9520, L501.1400, L500.4050 #### [facility] [address] [place], [address] Calcium [Mass/Vol] 9.3 mg/dL Normal 7.6-11.0 [facility] Comment on above: Performed By: #### L 3100.5310, L500.4100, L501.9910, L501.9520, L501.1400, L500.4050 #### [facility] [address] [place], [address] Chloride [Moles/Vol] 103 mmol/L Normal 98-108 [facility] Comment on above: Performed By: #### L 3100.5310, L500.4100, L501.9910, L501.9520, L501.1400, L500.4050 #### [facility] [address] [place], [address] CO2 [Moles/Vol] 23.4 mmol/L Normal 21.0-32.0 [facility] Comment on above: Performed By: #### L 3100.5310, L500.4100, L501.9910, L501.9520, L501.1400, L500.4050 #### [facility] [address] [place], [address] Creatinine [Mass/Vol] 1.06 mg/dL Normal 0.70-1.20 [facility] Comment on above: Performed By: #### L 3100.5310, L500.4100, L501.9910, L501.9520, L501.1400, L500.4050 #### [facility] [address] [place], [address] GAP 14 Normal 5-15 [facility] Comment on above: Performed By: #### L 3100.5310, L500.4100, L501.9910, L501.9520, L501.1400, L500.4050 #### [facility] [address] [place], [address] GFR/1.73 sq M.predicted among non-blacks MDRD (S/P/Bld) [Vol rate/Area] 77 mL/min/{1.73_m2} Normal >60 [facility] Comment on above: Result Comment: mL/m in/1.73m2 CKD-EPI Creatinine Equation (2020) Performed By: #### L 3100.5310, L500.4100, L501.9910, L501.9520, L501.1400, L500.4050 #### [facility] [address] [place], [address] Globulin (S) [Mass/Vol] 2.6 g/dL Normal 2.2-4.2 [facility] Comment on above: Performed By: #### L 3100.5310, L500.4100, L501.9910, L501.9520, L501.1400, L500.4050 #### [facility] [address] [place], [address] Glucose [Mass/Vol] 99 mg/dL Normal 70-99 [facility] Comment on above: Performed By: #### L 3100.5310, L500.4100, L501.9910, L501.9520, L501.1400, L500.4050 #### [facility] [address] [place], [address] Potassium [Moles/Vol] 3.6 mmol/L Normal 3.3-5.1 [facility] Comment on above: Performed By: #### L 3100.5310, L500.4100, L501.9910, L501.9520, L501.1400, L500.4050 #### [facility] [address] [place], [address] Sodium [Moles/Vol] 141 mmol/L Normal 133-145 [facility] Comment on above: Performed By: #### L 3100.5310, L500.4100, L501.9910, L501.9520, L501.1400, L500.4050 #### [facility] [address] [place], [address] T PROT 7.1 g/dL Normal 5.9-8.4 [facility] Comment on above: Performed By: #### L 3100.5310, L500.4100, L501.9910, L501.9520, L501.1400, L500.4050 #### [facility] [address] [place], [address] Urea nitrogen [Mass/Vol] 18 mg/dL Normal 4-19 [facility] Comment on above: Performed By: #### L 3100.5310, L500.4100, L501.9910, L501.9520, L501.1400, L500.4050 #### [facility] [address] [place], [address] Lipid Profileon 12-14-2024 CHOL:HDL 2.58 Normal [facility] Comment on above: Performed By: #### L 3100.5310, L500.4100, L501.9910, L501.9520, L501.1400, L500.4050 #### [facility] [address] [place], [address] Cholesterol [Mass/Vol] 189 mg/dL Normal <=[address] [facility] Comment on above: Result Comment: Chol esterol level, Desirable <200 mg/dL Borderline high cholesterol 200-239 mg/dL High cholesterol >=240 mg/dL Recommendations of the NCEP Adult Treatment Panel for the following risk-cutoff thresholds for the [place] population. Performed By: #### L 3100.5310, L500.4100, L501.9910, L501.9520, L501.1400, L500.4050 #### [facility] [address] [place], [address] Cholesterol in HDL [Mass/Vol] 73 mg/dL Normal [facility] Comment on above: Result Comment: Reva onal Cholesterol Education Program (NCEP) guidelines: <40 mg/dL: Low HDL-cholesterol (major risk factor for CHD) >= 60 mg/dL: High HDL-cholesterol (negative risk factor for CHD) HDL-cholesterol is affected by a number of factors, e.g. smoking, exercise, hormones, sex and age. Performed By: #### L 3100.5310, L500.4100, L501.9910, L501.9520, L501.1400, L500.4050 #### [facility] [address] [place], [address] Cholesterol in LDL [Mass/Vol] 92 mg/dL Normal [facility] Comment on above: Result Comment: Bord guwmct=126-854 mg/dL Higher Syul=425 mg/dL or greater Hassan Equation 2020 for LDL-C Performed By: #### L 3100.5310, L500.4100, L501.9910, L501.9520, L501.1400, L500.4050 #### [facility] [address] [place], [address] Cholesterol in VLDL [Mass/Vol] 27 mg/dL Normal 5-40 [facility] Comment on above: Performed By: #### L 3100.5310, L500.4100, L501.9910, L501.9520, L501.1400, L500.4050 #### [facility] [address] [place], [address] Triglyceride [Mass/Vol] 136 mg/dL Normal [facility] Comment on above: Result Comment: The drugs N-Acetylcysteine and Metamizole may falsely depress this assay. Normal range: <150 mg/dL Borderline High: 150-199 mg/dL High: 200-499 mg/dL Very High: >500 mg/dL Performed By: #### L 3100.5310, L500.4100, L501.9910, L501.9520, L501.1400, L500.4050 #### [facility] [address] [place], [address] PSA,Total - Annual Screenon 12-14-2024 PSA,TOT SCREEN 16.30 ng/mL High 0.02-4.00 [facility] Comment on above: Result Comment: This test [...] confirm baseline values. Performed By: #### L 501.9940, L500.2500, L501.1400, L500.4100 #### [facility] [address] [place], [address] Thyroid Stim Hormone (TSH)on 12-14-2024 TSH 1.850 uIU/mL Normal 0.300-4.200 [facility] Comment on above: Performed By: #### L 501.9940, L500.2500, L501.1400, L500.4100 #### [facility] [address] [place], [address] Uric Acidon 12-14-2024 URIC 8.0 mg/dL High 3.5-7.2 [facility] Comment on above: Result Comment: The drugs N-Acetylcysteine and Metamizole may falsely depress this assay. Performed By: #### L 501.9940, L500.2500, L501.1400, L500.4100 #### [facility] [address] [place], [address] PSA,Total- Diagnosticon 07-0 PSA, DIAGNOSTIC 9.32 ng/mL High 0.00-4.00 [facility] Comment on above: Result Comment: This test [...] values. Performed By: #### L 501.9940 #### [facility] [address] [place], [address] Inital Evaluation (1) - PTon 05-18-2024 Inital Evaluation (1) - PT [facility] [place] [id number] [facility] [place] [address] / REHABILITATION SERVICES INITIAL EVALUATION MR#: [id number] Acct: [id number] Name: TIN RAMOS Rep #: [id number] : 1960 63 From: Niru HARTLEY Referring Dr.: Keith Barlow MD Status: REG RCR Insurance: [facility] [employer] Patient's Visit Information Visit Information [...] to be FAXED BACK to us at [phone] for Medicare purposes. For Medicare only, by signing this I certify the plan of care. Please let me know if there are questions or concerns regarding this plan of care. Physician Signature: Date:__ 05/18/24 1310 CC: (more content not included)... Normal [facility] PSA Total+%Freeon 02-12-2024 PSA, FREE 0.66 ng/mL Normal N/A [facility] Comment on above: Result Comment: Mauro BESS methodology. Performed By: #### L 3110.0500 #### [facility] [address] [place], [address] PSA, FREE % 8.1 Normal . [facility] Comment on above: Result Comment: The table [...] any other population of men. [facility]formed at: [facility] [address], [place], [place] [id number] [employer] Generator: Fish Moralez PhD, Phone: [phone] Performed By: #### L 3110.0500 #### [facility] [address] [place], [address] PSA, TOTAL ULTR 8.150 ng/mL Abnormal 0.000-4.000 [facility] Comment on above: Result Comment: Roch e ECLIA methodology. According to the [place] [employer], Serum PSA should decrease and [...] disease. Performed By: #### L 3110.0500 #### [facility] [address] [facility] [place], [place], [address] Pelvis W/WO Contraston 02-09 Pelvis W/WO Contrast [facility] Services [address] [place], [place] [address] Pelvis W/WO Contrast MR#: [id number] Acct: [id number] Name: TIN RAMOS Rep #: [id number] : 1960 63 From: Tung lion MD PCP: Dr. Luke Guevara MD Status: [facility] Study: Pelvis W/WO Contrast Date of Exam: 02/10/24 Exam# [id number] Ordering Dr: Darius Villatoro [place] [id number] STUDY: MR PROSTATE GLAND/ PELVIS WITH T [...] recommended and treated clnically. (Cancers (Basel). 2022Feb 06;15(42):6963. doi: [id number] Prostate Cancers Invisible on Multiparametric MRI: Pathologic Features in Correlation with Whole-Mount Prostatectomy Radha Boateng 1,2,*, Shon Dotson 3, Alden Hinds 1,2, Alley Maxwell 1,2, Kalpana Stallworth 4, Kwabena Bowen 5, Rodrigo Overton 6, Willian Howard 1,2, Jacoby Kapoor 1,2) Reference information: Normal prostate tissue Benign [...] technically inade (more content not included)... Normal [facility] Basic Metabolic Profile (BMP )on 01-02-2024 BUN/CRE 12.9 RATIO Normal 10-20 [facility] Comment on above: Order Comment: PSAD- STEVEN OTHER TESTS-DAGO Performed By: #### L 501.9940, L500.2500, L501.1400, L500.4100 #### [facility] [address] [place], [address] CA,Total 9.0 mg/dL Normal 8.5-10.1 [facility] Comment on above: Order Comment: PSAD- STEVEN OTHER TESTS-DAGO Performed By: #### L 501.9940, L500.2500, L501.1400, L500.4100 #### [facility] [address] [place], [address] Chloride [Moles/Vol] 111 mmol/L High 98-107 [facility] Comment on above: Order Comment: PSAD- STEVEN OTHER TESTS-DAGO Performed By: #### L 501.9940, L500.2500, L501.1400, L500.4100 #### [facility] [address] [place], [address] CO2 [Moles/Vol] 26.0 mmol/L Normal 21.0-32.0 [facility] Comment on above: Order Comment: PSAD- STEVEN OTHER TESTS-DAGO Performed By: #### L 501.9940, L500.2500, L501.1400, L500.4100 #### [facility] [address] [place], [address] Creatinine [Mass/Vol] 1.01 mg/dL Normal 0.70-1.30 [facility] Comment on above: Order Comment: PSAD- STEVEN OTHER TESTS-DAGO Result Comment: The validity of the calculated GFR GFRAA in patients over 70 years has not been determined. Clinical correlation is essential. Performed By: #### L 501.9940, L500.2500, L501.1400, L500.4100 #### [facility] [address] [place], [address] EST GFR - AA 95 mL/min Normal >60 [facility] Comment on above: Order Comment: PSAD- STEVEN OTHER TESTS-DAGO Result Comment: Afri can Swedish GFR Calc Performed By: #### L 501.9940, L500.2500, L501.1400, L500.4100 #### [facility] [address] [place], [address] GAP 4 Low 5-15 [facility] Comment on above: Order Comment: PSAD- STEVEN OTHER TESTS-DAGO Performed By: #### L 501.9940, L500.2500, L501.1400, L500.4100 #### [facility] [address] [place], [address] GFR/1.73 sq M.predicted among non-blacks MDRD (S/P/Bld) [Vol rate/Area] 79 mL/min/{1.73_m2} Normal >60 [facility] Comment on above: Order Comment: PSAD- STEVEN OTHER TESTS-DAGO Result Comment: Non- GFR Calc Performed By: #### L 501.9940, L500.2500, L501.1400, L500.4100 #### [facility] [address] [place], [address] Glucose [Mass/Vol] 99 mg/dL Normal 74-106 [facility] Comment on above: Order Comment: PSAD- STEVEN OTHER TESTS-DAGO Performed By: #### L 501.9940, L500.2500, L501.1400, L500.4100 #### [facility] [address] [place], [address] Potassium [Moles/Vol] 4.2 mmol/L Normal 3.5-5.1 [facility] Comment on above: Order Comment: PSAD- STEVEN OTHER TESTS-DAGO Performed By: #### L 501.9940, L500.2500, L501.1400, L500.4100 #### [facility] [address] [place], [address] Sodium [Moles/Vol] 140 mmol/L Normal 136-145 [facility] Comment on above: Order Comment: PSAD- STEVEN OTHER TESTS-DAGO Performed By: #### L 501.9940, L500.2500, L501.1400, L500.4100 #### [facility] [address] [place], [address] Urea nitrogen [Mass/Vol] 13 mg/dL Normal 7-18 [facility] Comment on above: Order Comment: PSAD- STEVEN OTHER TESTS-DAGO Performed By: #### L 501.9940, L500.2500, L501.1400, L500.4100 #### [facility] [address] [place], [address] Lipid Profileon 11-07-2024 Cholesterol [Mass/Vol] 171 mg/dL Normal [address] [facility] Comment on above: Order Comment: PSAD- STEVEN OTHER TESTS-DAGO Result Comment: <200 mg/dL Desirable 200-240 mg/dL Borderline >240 mg/dL High Risk Performed By: #### L 501.9940, L500.2500, L501.1400, L500.4100 #### [facility] [address] [place], [address] Cholesterol in HDL [Mass/Vol] 82 mg/dL Normal [facility] Comment on above: Order Comment: PSAD- STEVEN OTHER TESTS-DAGO Result Comment: The drugs N-Acetylcysteine and Metamizole may falsely depress this assay. Reference Range HDL <40 mg/dL Low HDL Cholesterol HDL >or= 60 mg/dL High HDL Cholesterol Performed By: #### L 501.9940, L500.2500, L501.1400, L500.4100 #### [facility] [address] [place], [address] Cholesterol in LDL [Mass/Vol] 74 mg/dL Normal 0-130 [facility] Comment on above: Order Comment: PSAD- STEVEN OTHER TESTS-DAGO Performed By: #### L 501.9940, L500.2500, L501.1400, L500.4100 #### [facility] [address] [place], [address] Cholesterol in VLDL [Mass/Vol] 15 mg/dL Normal 5-40 [facility] Comment on above: Order Comment: PSAD- STEVEN OTHER TESTS-DAGO Performed By: #### L 501.9940, L500.2500, L501.1400, L500.4100 #### [facility] [address] [place], [address] Triglyceride [Mass/Vol] 75 mg/dL Normal [facility] Comment on above: Order Comment: PSAD- STEVEN OTHER TESTS-DAGO Result Comment: The drugs N-Acetylcysteine and Metamizole may falsely depress this assay. Serum Triglycerides Reference Interval Normal <150 mg/dL Borderline high 150 - 199 mg/dL High 200 - 499 mg/dL Very High > or = 500 mg/dL Performed By: #### L 501.9940, L500.2500, L501.1400, L500.4100 #### [facility] [address] [place], [address] PSA,Total- Diagnosticon PSA, DIAGNOSTIC 14.20 ng/mL High 0.0-4.0 [facility] Comment on above: Order Comment: PSAD- STEVEN OTHER TESTS-DAGO Result Comment: This test was performed using the TPSA assay method for the [employer] chemistry system. Values obtained with different assay methods cannot be used interchangably. When changing PSA assays in the course of monitoring a patient, additional sequential testing should be carried out to confirm baseline values. Performed By: #### L 501.9940, L500.2500, L501.1400, L500.4100 #### [facility] [address] [place], [address] Uric Acidon 01-02-2024 URIC 6.1 mg/dL Normal 3.5-7.2 [facility] Comment on above: Order Comment: PSAD- STEVEN OTHER TESTS-DAGO Result Comment: The drugs N-Acetylcysteine and Metamizole may falsely depress this assay. Performed By: #### L 501.9940, L500.2500, L501.1400, L500.4100 #### [facility] [address] [place], [address] Basophil percentageOrdered B y: Luke Guevara on 06-25-2023 Basophil percentage 8.13 ng/mL 0.0-4.0 [facility] Comment on above: This test was perfor med using the TPSA assay method for [employer] chemistry system. Values obtained with differentassay methods cannot be used interchangably.When changing PSA assays in the course of monitoring apatient, additional sequential testing should be carriedout to confirm baseline values. Basophil percentageOrdered B y: Luke Guevara on 04-08-2023 Bilirubin [Mass/Vol] 0.60 mg/dL 0.20-1.00 [facility] Comment on above: For patients on eltr ombopag therapy, use of Dimension [place] TBIL is not recommended. Chloride [Moles/Vol] 114 mmol/L 98-107 [facility] Glucose [Mass/Vol] 113 mg/dL 74-106 [facility] Comment on above: Fasting Glucose resu lt from 100 to 125 mg/dL suggests IMPAIRED HOMEOSTASIS per A.D.A. criteria. Potassium [Moles/Vol] 3.7 mmol/L 3.5-5.1 [facility] Protein [Mass/Vol] 6.9 g/dL 6.4-8.2 [facility] Sodium [Moles/Vol] 144 mmol/L 136-145 [facility] - Chemistry and C hemistry - challengeOrdered By: Luke Guevara on 04-08-2023 Albumin/Globulin [Mass ratio] 1.3 {ratio} 0.9-2.4 [facility] ALP [Catalytic activity/Vol] 93 U/L 45-117 [facility] ALT [Catalytic activity/Vol] 31 U/L 16-61 [facility] CO2 [Moles/Vol] 24.0 mmol/L 21.0-32.0 [facility] Globulin (S) [Mass/Vol] 3.0 g/dL 2.2-4.2 [facility] Urea nitrogen/Creatinine [Mass ratio] 22.0 mg/mg 10-20 [facility] No Panel InformationOrdered By: Luke Guevara on 04-08-2023 Estimated GFR (MDRD) Amer 87 mL/min >60 [facility] Comment on above: GFR Calc Estimated GFR (MDRD) Non-Af Amer 72 mL/min >60 [facility] Comment on above: Non- GFR Calc Serum or plasma calcium erik urement (mass/volume)Ordered By: Luke Guevara on 04-08-2023 Calcium [Mass/Vol] 8.9 mg/dL 8.5-10.1 [facility] Serum or plasma creatinine m easurement (mass/volume)Ordered By: Luke Guevara on 04-08-2023 Creatinine [Mass/Vol] 1.09 mg/dL 0.70-1.30 [facility] Comment on above: The validity of the calculated GFR & GFRAA in patients over 70 years has not been determined. Clinical correlation is essential. Serum or plasma urea nitroge n measurement (mass/volume)Ordered By: Luke Guevara on 04-08-2023 Urea nitrogen [Mass/Vol] 24 mg/dL 7-18 [facility] Serum or plasma uric acid me asurement (mass/volume)Ordered By: Luke Guevara on 04-08-2023 Urate [Mass/Vol] 7.3 mg/dL 3.5-7.2 [facility] Comment on above: The drugs N-Acetylcy steine and Metamizole may falsely depress this assay. Thin prep Papanicolaou smear with manual screeningOrdered By: Luke Guevara on 04-08-2023 Thin prep Papanicolaou smear with manual screening 3.9 g/dL 3.2-5.0 [facility] Thin prep Papanicolaou smear with manual screening 11 U/L 15-37 [facility] Thin prep Papanicolaou smear with manual screening 6 5-15 [facility] Absolute lymphocyte countOrd ered By: Luke Guevara on 12-26-2022 Lymphocytes Auto (Unsp spec) [#/Vol] 2.03 10*3/uL 0.83-4.51 [facility] Basophil percentageOrdered B y: Dariusroshan Villatoro on 12-26-2022 Bilirubin [Mass/Vol] 0.50 mg/dL 0.20-1.00 [facility] Comment on above: For patients on eltr ombopag therapy, use of Dimension [place] TBIL is not recommended. Chloride [Moles/Vol] 109 mmol/L 98-107 [facility] [facility] Cholesterol [Mass/Vol] 211 mg/dL <[address] [facility] Comment on above: <200 mg/dL Desirable 200-240 mg/dL Borderline >240 mg/dL High Risk Glucose [Mass/Vol] 99 mg/dL 74-106 [facility] Potassium [Moles/Vol] 5.0 mmol/L 3.5-5.1 [facility] Protein [Mass/Vol] 7.0 g/dL 6.4-8.2 [facility] Sodium [Moles/Vol] 140 mmol/L 136-145 [facility] Triglyceride [Mass/Vol] 85 mg/dL <199 [facility] Comment on above: The drugs N-Acetylcy steine and Metamizole may falsely depress this assay.Serum Triglycerides Reference Interval Normal <150 mg/dL Borderline high 150 - 199 mg/dL High 200 - 499 mg/dL Very High > or = 500 mg/dL Basophil percentageOrdered B y: Luke Guevara on 12-26-2022 Basophils/100 WBC (Bld) 0.3 % 0-1 [facility] Eosinophils/100 WBC (Bld) 3.4 % 0-5 [facility] Neutrophils (Bld) [#/Vol] 4.1 10*3/uL 2.0-7.7 [facility] Neutrophils/100 WBC (Bld) 58.3 % 47-70 [facility] WBC (Bld) [#/Vol] 7.1 10*3/uL 4.4-11.0 [facility] Blood erythrocytes count (nu mber/volume)Ordered By: Luke Guevara on 12-26-2022 RBC (Bld) [#/Vol] 5.48 10*6/uL 4.6-6.2 [facility] Blood hemoglobin measurement (mass/volume)Ordered By: Luke Guevara on 12-26-2022 Hemoglobin (Bld) [Mass/Vol] 15.9 g/dL 13.0-16.5 [facility] Blood lymphocytes/100 leukoc ytesOrdered By: Luke Guevara on 12-26-2022 Lymphocytes/100 WBC (Bld) 28.8 % 19-41 [facility] Blood monocytes/100 leukocyt esOrdered By: Luke Guevara on 12-26-2022 Monocytes/100 WBC (Bld) 8.9 % 0-10 [facility] Blood platelet mean volumeOr dered By: Luke Guevara on 12-26-2022 Platelet mean volume (Bld) [Entitic vol] 9.2 fL 6.2-12.0 [facility] Determination of erythrocyte mean corpuscular volume (MCV)Ordered By: Luke Guevara on 12-26-2022 MCV (RBC) [Entitic vol] 87.0 fL 80-94 [facility] Hematocrit Auto (Bld) [Volum e fraction]Ordered By: Luke Guevara on 12-26-2022 Hematocrit (Bld) [Volume fraction] 47.7 % 40-54 [facility] Laboratory - Chemistry and C hemistry - challengeOrdered By: Darius Villatoro on 12-26-2022 ALP [Catalytic activity/Vol] 76 U/L 45-117 [facility] ALT [Catalytic activity/Vol] 36 U/L 16-61 [facility] CO2 [Moles/Vol] 26.0 mmol/L 21.0-32.0 [facility] Globulin (S) [Mass/Vol] 3.1 g/dL 2.2-4.2 [facility] Urea nitrogen/Creatinine [Mass ratio] 14.2 mg/mg 10-20 [facility] Laboratory - Hematology and Cell countsOrdered By: Luke Guevara on 12-26-2022 Erythrocyte distribution width (RBC) [Entitic vol] 40.8 fL 35.1-43.9 [facility] Erythrocyte distribution width (RBC) [Ratio] 12.8 % 11.6-14.6 [facility] Immature granulocytes/100 WBC (Bld) 0.300 % 0.0-0.9 [facility] Comment on above: IG% - Immature Granu locytes (promyelocytes, myelocytes and metamyelocytes) > 1% indicates that a LEFT SHIFT is Present. MCH (RBC) [Entitic mass] 29.0 pg 27.0-32.0 [facility] Nucleated RBC/100 WBC (Bld) [Ratio] 0 % 0-5 [facility] MCHC Auto (RBC) [Mass/Vol]Or dered By: Luke Guevara on 12-26-2022 MCHC (RBC) [Mass/Vol] 33.3 g/dL 32-36 [facility] No Panel InformationOrdered By: Darius Villatoro on 12-26-2022 Estimated GFR (MDRD) Amer 78 mL/min >60 [facility] Comment on above: GFR Calc Estimated GFR (MDRD) Non-Af Amer 65 mL/min >60 [facility] Comment on above: Non- GFR Calc Prostate Specific Antigen Total 8.47 ng/mL 0.0-4.0 [facility] Comment on above: This test was perfor med using the TPSA assay method for the[facility] system. Values obtained with differentassay methods cannot be used interchangably.When changing PSA assays in the course of monitoring apatient, additional sequential testing should be carriedout to confirm baseline values. Platelets bldOrdered By: Saida Guevara on 12-26-2022 Platelets (Bld) [#/Vol] 225 10*3/uL 150-450 [facility] Serum or plasma albumin erik urement (mass/volume)Ordered By: Darius Villatoro on 12-26-2022 Albumin [Mass/Vol] 3.9 g/dL 3.2-5.0 [facility] Serum or plasma albumin/glob ulin mass ratioOrdered By: Darius Villatoro on 12-26-2022 Albumin/Globulin [Mass ratio] 1.3 {ratio} 0.9-2.4 [facility] Serum or plasma calcium erik urement (mass/volume)Ordered By: Darius Villatoro on 12-26-2022 Calcium [Mass/Vol] 8.8 mg/dL 8.5-10.1 [facility] Serum or plasma cholesterol in HDL measurement (mass/volume)Ordered By: Darius Villatoro on 12-26-2022 Cholesterol in HDL [Mass/Vol] 69 mg/dL >40 [facility] Comment on above: The drugs N-Acetylcy steine and Metamizole may falsely depress this assay. Reference Range HDL <40 mg/dL Low HDL Cholesterol HDL >or= 60 mg/dL High HDL Cholesterol Serum or plasma cholesterol in VLDL measurement (mass/volume)Ordered By: Darius Villatoro on 12-26-2022 Cholesterol in VLDL [Mass/Vol] 17 mg/dL 5-40 [facility] Serum or plasma creatinine m easurement (mass/volume)Ordered By: Darius Villatoro on 12-26-2022 Creatinine [Mass/Vol] 1.20 mg/dL 0.70-1.30 [facility] Comment on above: The validity of the calculated GFR & GFRAA in patients over 70 years has not been determined. Clinical correlation is essential. Serum or plasma low density lipoprotein (LDL) cholesterol measurement (mass/volume)Ordered By: Darius Villatoro on 12-26-2022 Cholesterol in LDL [Mass/Vol] 125 mg/dL 0-130 [facility] Serum or plasma urea nitroge n measurement (mass/volume)Ordered By: Darius Villatoro on 12-26-2022 Urea nitrogen [Mass/Vol] 17 mg/dL 7-18 [facility] Thin prep Papanicolaou smear with manual screeningOrdered By: Darius Villatoro on 12-26-2022 Thin prep Papanicolaou smear with manual screening 18 U/L 15-37 [facility] Thin prep Papanicolaou smear with manual screening 5 5-15 [facility] Absolute lymphocyte countOrd ered By: Luke Guevara on 09-13-2022 Lymphocytes Auto (Unsp spec) [#/Vol] 0.59 10*3/uL 0.83-4.51 [facility] Basophil percentageOrdered B y: Luke Guevara on 09-13-2022 Basophils/100 WBC (Bld) 0.3 % 0-1 [facility] Chloride [Moles/Vol] 104 mmol/L 98-107 [facility] Eosinophils/100 WBC (Bld) 0.7 % 0-5 [facility] Glucose [Mass/Vol] 148 mg/dL 74-106 [facility] Comment on above: Fasting Glucose resu lt greater than or equal to 126 mg/dL suggests DIABETES MELLITUS per A.D.A. criteria. Neutrophils (Bld) [#/Vol] 5.0 10*3/uL 2.0-7.7 [facility] Neutrophils/100 WBC (Bld) 75.7 % 47-70 [facility] Potassium [Moles/Vol] 4.0 mmol/L 3.5-5.1 [facility] Sodium [Moles/Vol] 135 mmol/L 136-145 [facility] WBC (Bld) [#/Vol] 6.7 10*3/uL 4.4-11.0 [facility] Blood erythrocytes count (nu mber/volume)Ordered By: Luke Guevara on 09-13-2022 RBC (Bld) [#/Vol] 5.66 10*6/uL 4.6-6.2 [facility] Blood hemoglobin measurement (mass/volume)Ordered By: Luke Guevara on 09-13-2022 Hemoglobin (Bld) [Mass/Vol] 16.7 g/dL 13.0-16.5 [facility] Blood lymphocytes/100 leukoc ytesOrdered By: Luke Guevara on 09-13-2022 Lymphocytes/100 WBC (Bld) 8.8 % 19-41 [facility] Blood manual differential co mment interpretation (narrative result)Ordered By: Luke Guevara on 09-13-2022 Manual differential comment Christian (Bld) [Interp] COMMENT [facility] Comment on above: LYMPHOPENIA. Blood monocytes/100 leukocyt esOrdered By: Luke Guevara on 09-13-2022 Monocytes/100 WBC (Bld) 14.1 % 0-10 [facility] Blood platelet mean volumeOr dered By: Luke Guevara on 09-13-2022 Platelet mean volume (Bld) [Entitic vol] 9.8 fL 6.2-12.0 [facility] Determination of erythrocyte mean corpuscular volume (MCV)Ordered By: Luke Guevara on 09-13-2022 MCV (RBC) [Entitic vol] 89.4 fL 80-94 [facility] Hematocrit Auto (Bld) [Volum e fraction]Ordered By: Luke Guevara on 09-13-2022 Hematocrit (Bld) [Volume fraction] 50.6 % 40-54 [facility] Laboratory - Chemistry and C hemistry - challengeOrdered By: Luke Guevara on 09-13-2022 CO2 [Moles/Vol] 25.0 mmol/L 21.0-32.0 [facility] Urea nitrogen/Creatinine [Mass ratio] 13.4 mg/mg 10-20 [facility] - Hematology and Cell countsOrdered By: Luke Guevara on 09-13-2022 Erythrocyte distribution width (RBC) [Entitic vol] 40.0 fL 35.1-43.9 [facility] Erythrocyte distribution width (RBC) [Ratio] 12.2 % 11.6-14.6 [facility] Immature granulocytes/100 WBC (Bld) 0.400 % 0.0-0.9 [facility] Comment on above: IG% - Immature Granu locytes (promyelocytes, myelocytes and metamyelocytes) > 1% indicates that a LEFT SHIFT is Present. MCH (RBC) [Entitic mass] 29.5 pg 27.0-32.0 [facility] Nucleated RBC/100 W[facility] (Bld) [[facility]] 0 % [facility] [Mass/Vol]Or dered By: Luke Guevara on 09-13-2022 MCHC (RBC) [Mass/Vol] 33.0 g/dL 32-36 [facility] No Panel InformationOrdered By: Luke Guevara on 09-13-2022 Estimated GFR (MDRD) Amer 65 mL/min >60 [facility] Comment on above: GFR Calc Estimated GFR (MDRD) Non-Af Amer 53 mL/min >60 [facility] Comment on above: Non- GFR Calc Platelets bldOrdered By: Saida Guevara on 09-13-2022 Platelets (Bld) [#/Vol] 143 10*3/uL 150-450 [facility] Serum or plasma calcium erik urement (mass/volume)Ordered By: Luke Guevara on 09-13-2022 Calcium [Mass/Vol] 9.1 mg/dL 8.5-10.1 [facility] Serum or plasma creatinine m easurement (mass/volume)Ordered By: Luke Guevara on 09-13-2022 Creatinine [Mass/Vol] 1.42 mg/dL 0.70-1.30 [facility] Comment on above: The validity of the calculated GFR & GFRAA in patients over 70 years has not been determined. Clinical correlation is essential. Serum or plasma urea nitroge n measurement (mass/volume)Ordered By: Luke Guevara on 09-13-2022 Urea nitrogen [Mass/Vol] 19 mg/dL 7-18 [facility] Thin prep Papanicolaou smear with manual screeningOrdered By: Luke Guevara on 09-13-2022 Thin prep Papanicolaou smear with manual screening 6 5-15 [facility] Thin prep Papanicolaou smear with manual screening Negative Negative [facility] Comment on above: Lyme antibodies not detected. Reflex testing is notindicated.No laboratory evidence of infection with B. burgdorferi(Lyme disease). Negative results may occur in patientsrecently infected (less than or equal to 14 days) with B.burgdorferi. If recent infection is suspected, repeattesting on a new sample collected in 7 to 14 days isrecommended.Performed at: [address] [id number] Director: Fish Moralez PhD, Phone: [phone] No Panel InformationOrdered By: Dr. Guevara on 06-11-2022 Prostate Specific Antigen Total 8.97 ng/mL 0.0-4.0 [facility] Comment on above: This test was perfor med using the TPSA assay method for the[employer] chemistry system. Values obtained with differentassay methods cannot be used interchangably.When changing PSA assays in the course of monitoring apatient, additional sequential testing should be carriedout to confirm baseline values. Basophil percentageon 2021 Chloride [Moles/Vol] 109 mmol/L 98-107 [facility] Work Phone: Cholesterol [Mass/Vol] 192 mg/dL <[address] [facility] Work Phone: Comment on above: <200 mg/dL Desirable 200-240 mg/dL Borderline >240 mg/dL High Risk Glucose [Mass/Vol] 106 mg/dL 74-106 [facility] Work Phone: Comment on above: Fasting Glucose resu lt from 100 to 125 mg/dL suggests IMPAIRED HOMEOSTASIS per A.D.A. criteria. Potassium [Moles/Vol] 4.2 mmol/L 3.5-5.1 [facility] Work Phone: Sodium [Moles/Vol] 140 mmol/L 136-145 [facility] Work Phone: Testosterone [Mass/Vol] 400.87 ng/dL [facility] Work Phone: Comment on above: CENTRAL 90% REFERENC E RANGES MALE AGE <50 197.44 - 669.58 ng/dL MALE AGE > or = 50 187.72 - 684.19 ng/dL FEMALE AGE <50 8.38 - 35.01 ng/dL FEMALE AGE > or = 50 <7.00 - 35.92 ng/dL Effective as of 09/20/20 Triglyceride [Mass/Vol] 95 mg/dL <199 [facility] Work Phone: Comment on above: The drugs N-Acetylcy steine and Metamizole may falsely depress this assay.Serum Triglycerides Reference Interval Normal <150 mg/dL Borderline high 150 - 199 mg/dL High 200 - 499 mg/dL Very High > or = 500 mg/dL Laboratory - Chemistry and C hemistry - challengeon 10-25-2021 CO2 [Moles/Vol] 26.0 mmol/L 21.0-32.0 [facility] Work Phone: Urea nitrogen/Creatinine [Mass ratio] 14.4 mg/mg 10-20 [facility] Work Phone: No Panel Informationon 10-25 Estimated GFR (MDRD) Amer 70 mL/min >60 [facility] Work Phone: Comment on above: GFR Calc Estimated GFR (MDRD) Non-Af Amer 58 mL/min >60 [facility] Work Phone: Comment on above: Non- GFR Calc Prostate Specific Antigen Screen 8.73 ng/mL 0.00-4.00 [facility] Work Phone: Comment on above: This test was perfor med using the TPSA assay method for the[employer] chemistry system. Values obtained with differentassay methods cannot be used interchangably.When changing PSA assays in the course of monitoring apatient, additional sequential testing should be carriedout to confirm baseline values. Thyroid Stimulating Hormone (TSH) 1.40 uIU/mL 0.358-3.74 [facility] Work Phone: Vitamin D 25-Hydroxy 19.3 ng/mL [facility] Work Phone: Comment on above: Vitamin D 25(OH) Sta tus Range Deficiency <20 ng/mL (50nmol/L) Insufficiency 20 - 30 ng/mL (50 - 75 nmol/L) Sufficiency 30 - 100 ng/mL (75 - 250 nmol/L) Toxicity >100 ng/mL (>250 nmol/L) Serum or plasma calcium erik urement (mass/volume)on 10-25-2021 Calcium [Mass/Vol] 9.2 mg/dL 8.5-10.1 [facility] Work Phone: Serum or plasma cholesterol in HDL measurement (mass/volume)on 10-25-2021 Cholesterol in HDL [Mass/Vol] 57 mg/dL >40 [facility] Work Phone: Comment on above: The drugs N-Acetylcy steine and Metamizole may falsely depress this assay. Reference Range HDL <40 mg/dL Low HDL Cholesterol HDL >or= 60 mg/dL High HDL Cholesterol Serum or plasma cholesterol in VLDL measurement (mass/volume)on 10-25-2021 Cholesterol in VLDL [Mass/Vol] 19 mg/dL 5-40 [facility] Work Phone: Serum or plasma creatinine m easurement (mass/volume)on 10-25-2021 Creatinine [Mass/Vol] 1.32 mg/dL 0.70-1.30 [facility] Work Phone: Comment on above: The validity of the calculated GFR & GFRAA in patients over 70 years has not been determined. Clinical correlation is essential. Serum or plasma low density lipoprotein (LDL) cholesterol measurement (mass/volume)on 10-25-2021 Cholesterol in LDL [Mass/Vol] 116 mg/dL 0-130 [facility] Work Phone: Serum or plasma urea nitroge n measurement (mass/volume)on 10-25-2021 Urea nitrogen [Mass/Vol] 19 mg/dL 7-18 [facility] Work Phone: Thin prep Papanicolaou smear with manual screeningon 10-25-2021 Thin prep Papanicolaou smear with manual screening 5 5-15 [facility] Work Phone: CNOVon 05-12-2021 CNOV Office Visit (UCWSTR ) TIN RAMOS ([id number]) 1960 M Date Time Provider Department 05/12/21 10:45 AM YARELY LLOYDWSTR During your visit today, we recorded the [...] - other (ASCVD [Other]) Maternal Grandfather from [place] in late 70's - other (Cardiac [Other]) [...] A DOSE PACK Agrees to plan Declines avdrew Lloyd APRN.PAPER MAKER Referring Provider: SELF [200] Allergies As of [...] W/O COM (more content not included)... Normal [facility] Encounters Encounter Date Encounter Type Care Provider Facility Start: 12-14-2024 End: 12-14-2024 ambulatory Luke Guevara Facility:[facility] Start: 09-02-2024 End: 09-02-[address] Luke Guevara MD Work Phone: -Laboratory Start: 09-02-2024 End: 09-02-[address] Darius Villatoro MD -Laboratory Work Phone: Start: 09-02-2024 End: 09-02-2024 ambulatory Luke Guevara Facility:[facility] Start: 07-17-2024 ambulatory Luke Guevara Facility:[facility] Start: 06-15-2024 End: 06-15-2024 ambulatory Luke Guevara Facility:[facility] Start: 06-15-2024 Registered Recurring Keith king MD -Physical Therapy Work Phone: Start: 02-10-2024 End: 02-10-2024 ambulatory Luke Guevara Facility:[facility] Start: 01-27-2024 Encounter for genera l adult medical examination without abnormal findings Luke Guevara [facility] Start: 01-02-2024 End: 01-02-2024 ambulatory Luke Guevara Facility:[facility] Start: 06-25-2023 End: 06-25-2023 ambulatory [facility] Work Phone: Start: 06-25-2023 End: 06-25-2023 Patient encounter procedure [place] Start: 04-15-2023 End: 04-15-2023 ambulatory [facility] Work Phone: Start: 04-15-2023 End: 04-15-2023 Discharged Recurring [facility] Work Phone: Start: 04-08-2023 End: 04-08-2023 ambulatory [facility] Work Phone: Start: 04-08-2023 End: 04-08-2023 Patient encounter procedure [place] Start: 12-26-2022 End: 12-26-2022 ambulatory [facility] Work Phone: Start: 12-26-2022 End: 12-26-2022 Patient encounter procedure [place] Start: 09-13-2022 End: 09-13-2022 Patient encounter procedure [place] Start: 06-11-2022 End: 06-11-2022 ambulatory [facility] Work Phone: Start: 06-11-2022 End: 06-11-2022 Patient encounter procedure [place] Start: 12-05-2021 End: 12-05-2021 ambulatory [facility] Work Phone: Start: 12-05-2021 End: 12-05-[facility] Start: 10-25-2021 End: 10-25-2021 ambulatory [facility] Work Phone: Start: 10-25-2021 End: 10-25-2021 Patient encounter procedure [place] Procedures Date Procedure Procedure Detail Performing Clinician [...] Activity Detail Author Start: 03-04-2025 ambulatory Ambulatory Facility:[facility] Payers Date Payer Category Payer Unknown [id number] 2024 Self-pay [id number] 2024 Unknown [id number] Unknown [id number] Unknown [id number] 2.16.8 [id number] Unknown [id number] 2.16.8 [id number] Unknown [id number] 2.16.8 [id number] Unknown [id number] 2.16.8 [id number] Unknown [id number] 2.16.8 [id number] Unknown [id number] 2.16.8 [id number] Unknown [id number] 2.16.8 [id number] Social History Date Type Detail Facility Start: 12-31-2018 End: 12-31-2018 Tobacco smoking status NHIS Unknown if ever smoked [facility] Start: 1960 Sex Assigned At Male [facility] Start: 09-11-2023 Tobacco smoking stat us NHIS Ex-smoker (finding) [facility] Progress note 05-12-2021 Note Date & Type Note Facility 03-18-2022 Note HNO ID: [id number] Author: Yarely Lloyd APRN.PAPER MAKER Service: ? Author Type: Nurse Practitioner Type: [...] - other (ASCVD [Other]) Maternal Grandfather from [place] in late 70's - other (Cardiac [Other]) [...] PACK Agrees to plan Declines mariia Lloyd APRN.PAPER MAKER [facility] Evaluation note Note Date & Type Note Facility Evaluation note No assessment information availa ble [facility] Work Phone: Reason for referral (narrative) Note Date & Type Note Facility Reason for referral (narrative) No reason for referral information available [facility] Work Phone: Summary Purpose Family History No Family History Records FoundNo Family History Records Found Advance Directives No Advanced Directives Records FoundNo Advanced Directives Records Found Chief Complaint and Reason for Visit Chief Complaint PSA Chief Complaint PERANEAL TENDONITIS. RX HERE Chief Complaint Admit Date RIGHT KNEE, POST SURGERY. RX WITH KASHIF Mustafa June 15, 2024 11:30am Additional Source Comments (unrecognized sect ion and content) No Status Records FoundNo Status Records Found INFORMATION SOURCE (unrecogn ized section and content) DATE CREATED AUTHOR 05/13/2021 [facility] DATE CREATED AUTHOR AUTHOR'S ORGANIZ ATION 12/23/2024 [facility] Goals (unrecognized section and content) Goals may [...] Dates Dr. Luke Guevara MD Primary Care Provider, Attending Provider Active [...] BE BASED ON THE PRIMARY CLINICAL RECORDS. [employer] [facility]. provides no warranty or guarantee of the accuracy or completeness of information in this document.
== END | disposition home or self-care (01) ==
LOC: LABSPEC 15:07
PROVIDERS: PCP Family Medicine; Referring Provider Urology; Visit Provider Urology
DX: R97.20 Elevated prostate specific antigen [PSA] (principal)
CPT/HCPCS: 88305; G0416